=== PATIENT | female | born 1950 | race Caucasian/White ===

== ENCOUNTER → 2017-12-02 | Outpatient (CLI) | payer MEDICARE ==
[~2017-12-02] MED LIST: ALPR0.5T10 PO; AMLO2.5T PO; ASPI-496 PO; ATOR-2 PO; BENA20TA2 PO; CALC-141 PO; CITA20TA5 PO; GARL10002 PO; HYDR25TA6 PO; LACT1CAP20 PO; MAGN100T3 PO; METO25TA35 PO; OMEP20TA62 PO
== END | disposition home or self-care (01) ==
LOC: CFH 07:00
PROVIDERS: ATTEND Physician Assistant
DX: I35.8 Other nonrheumatic aortic valve disorders (principal); I25.10 Atherosclerotic heart disease of native coronary artery without angina pectoris
CPT/HCPCS: 93306

== ENCOUNTER → 2018-07-04 | Outpatient (CLI) | payer MEDICARE ==
[~2018-07-04] MED LIST changes: -BENA20TA2 PO; +BENA20TA4 PO; -CITA20TA5 PO; +CITA20TA6 PO; +GADOBUTROL 7.5 MMOL/7.5 ML PFS ONE
== END | disposition home or self-care (01) ==
LOC: CFH 07:24
PROVIDERS: ATTEND Anesthesiology
DX: S83.241A Other tear of medial meniscus, current injury, right knee, initial encounter (principal); M25.461 Effusion, right knee; M17.11 Unilateral primary osteoarthritis, right knee; X58.XXXA Exposure to other specified factors, initial encounter; Y93.89 Activity, other specified; Y92.89 Other specified places as the place of occurrence of the external cause; Y99.8 Other external cause status
CPT/HCPCS: 73723; A9585

== ENCOUNTER 2018-08-09 14:17 | Emergency (ER) | payer MEDICARE ==
[~2018-08-09] VITALS: Ht 170.2 cm; Wt 70.9 kg
[~2018-08-09 14:17] MED LIST changes: -AMLO2.5T PO; +AMLO2.5T3 PO; -GADOBUTROL 7.5 MMOL/7.5 ML PFS ONE
[2018-08-09 14:57] LABS: BASOPHILS # (AUTO) 0.12 x10^3/uL (0-0.1); BASOPHILS % (AUTO) 1 % (0-1); EOSINOPHILS # (AUTO) 0.19 x10^3/uL (0-0.4); EOSINOPHILS % (AUTO) 2 % (1-7); LYMPHOCYTES # (AUTO) 2.86 x10^3/uL (1-3.4); LYMPHOCYTES % (AUTO) 26 % (22-44); MD NO; MEAN CORPUSCULAR HEMOGLOBIN 32.4 pg (27.0-34.8); MEAN CORPUSCULAR HGB CONC 33.7 g/dL (32.4-35.8); MEAN PLATELET VOLUME 8.8 fL (7.4-10.4); MONOCYTES # (AUTO) 0.64 x10^3/uL (0.2-0.8); MONOCYTES % (AUTO) 6 % (2-9); NEUTROPHILS % (AUTO) 65 % (42-75); PLATELET COUNT 307 x10^3/uL (130-400); RED BLOOD COUNT 4.88 x10^6/uL (3.82-5.3); RED CELL DISTRIBUTION WIDTH 13.6 % (9.6-15.2)
[2018-08-09] MEDS ORDERED: SODIUM CHLORIDE FLUSH 10ML SYR IVF ONE (15:00)
[2018-08-09 15:02] LABS: INTERNATIONAL NORMALIZED RATIO 0.99 (0.93-1.1); PROTHROMBIN TIME 10.3 Seconds (9.6-11.5)
[2018-08-09 15:05] LABS: ALANINE AMINOTRANSFERASE 38 U/L (12-78); ALBUMIN 3.7 g/dL (3.4-5.0); ANION GAP 7 mmol/L (5-15); CALCIUM 9.3 mg/dL (8.5-10.1); CHLORIDE 109 mmol/L (98-107)
[2018-08-09 15:08] LABS: ALKALINE PHOSPHATASE 81 U/L (45-117); TOTAL PROTEIN 7.1 g/dL (6.4-8.2)
[2018-08-09] MEDS ORDERED: OMNIPAQUE 350 MG/ML, 100ML BOTTLE ONE (15:51)
[2018-08-09 17:06] VITALS: BP 134/81
== END 2018-08-09 17:08 | disposition home or self-care (01) ==
LOC: ED 15:18
DX: K57.31 Diverticulosis of large intestine without perforation or abscess with bleeding (principal); E78.00 Pure hypercholesterolemia, unspecified; I25.2 Old myocardial infarction; Z87.891 Personal history of nicotine dependence; I10 Essential (primary) hypertension
CPT/HCPCS: 36415; 74174; 80053; 85025; 85610; 86850; 86900; 99285; Q9967

== ENCOUNTER 2018-10-22 11:25 | Emergency (ER) | payer MEDICARE ==
[~2018-10-22] VITALS: Ht 170.2 cm; Wt 72.0 kg
[2018-10-22] MEDS ORDERED: DIAZEPAM 5 MG TABLET PO ONE (12:00)
[2018-10-22] MEDS ORDERED: METHOCARBAMOL 750 MG TABLET PO ONE (12:00)
[2018-10-22] MEDS ORDERED: METHOCARBAMOL 750 MG TABLET ONE (12:12)
[2018-10-22] MEDS ORDERED: DIAZEPAM 5 MG TABLET ONE (12:13)
[2018-10-22] MEDS ORDERED: TRAZ-136 PO (13:28)
[2018-10-22] MEDS ORDERED: DULO30CA2 PO (13:28)
[2018-10-22] MEDS ORDERED: POTA99TA2 PO (13:28)
[2018-10-22] MEDS ORDERED: HYDR-3241 PO (13:28)
[2018-10-22] MEDS ORDERED: TAPE100T8 PO (13:28)
[2018-10-22] MEDS ORDERED: BENA20TA4 PO (13:28)
[2018-10-22] MEDS ORDERED: CELE200C PO (13:28)
[2018-10-22 13:39] VITALS: BP 126/76
== END 2018-10-22 13:42 | disposition home or self-care (01) ==
LOC: ED 13:36
DX: M54.16 Radiculopathy, lumbar region (principal); M54.42 Lumbago with sciatica, left side; I10 Essential (primary) hypertension; I25.2 Old myocardial infarction; E78.00 Pure hypercholesterolemia, unspecified; I25.10 Atherosclerotic heart disease of native coronary artery without angina pectoris
CPT/HCPCS: 99284; J7512

== ENCOUNTER 2020-06-13 13:28 | Inpatient (IN) | payer MEDICARE ==
[~2020-06-13] VITALS: Ht 170.2 cm; Wt 66.4 kg
[~2020-06-13 13:28] MED LIST changes: -AMLO2.5T3 PO; +AMLO2.5T5 PO; -BENA20TA4 PO; +BENA20TA54 PO; +CELE200C PO; +DULO30CA2 PO; +HYDR-3241 PO; +POTA99TA2 PO; +TAPE100T8 PO; +TRAZ50TA66 PO
--- NOTE | 2020-06-13 13:30 | NUR ---
TASK RN: JOHNSON FRAZIER FROM HOME W/ CO EPIGASTRIC & PERIUMBILICAL ABD PAIN X SATURDAY & N/V X TWO DAYS. +LOW GRADE FEVER, 99.8 YESTERDAY. DENIES URINARY S/S, CHEST PAIN, SOB, BLOOD IN EMESIS OR STOOL, OR CHILLS. UNABLE TO TAKE HOME MEDICTIONS SINCE YESTERDAY SECONDARY TO PAIN/N/V. ZOFRAN 4MG IV GIVEN EN ROUTE WITH EFFECT. PT ARRIVES A&OX4, MM DRY, CONJUNCTIVA PALE. BP/SPO2/ECG MONITORING IN PLACE. HYPOTENSIVE AND TACHYCARDIC. IVF HUNG, OKAY PER ERP VERBAL ORDER. EKG COMPLETED UPON ARRIVAL.
[2020-06-13] MEDS ORDERED: TRAMADOL (13:51)
[2020-06-13] MEDS ORDERED: HYDRALAZINE (13:53)
[2020-06-13] MEDS ORDERED: BENZONATE (13:53)
[2020-06-13] MEDS ORDERED: FAMOTIDINE 20 MG/2 ML ONE (13:57)
[2020-06-13] MEDS ORDERED: ONDANSETRON 2MG/ML, 2ML ONE (13:57)
[2020-06-13 14:07] LABS: BASOPHILS # (AUTO) 0.03 x10^3/uL (0-0.1); BASOPHILS % (AUTO) 0 % (0-1); EOSINOPHILS # (AUTO) 0.03 x10^3/uL (0-0.4); EOSINOPHILS % (AUTO) 0 % (1-7); LYMPHOCYTES # (AUTO) 1.65 x10^3/uL (1-3.4); LYMPHOCYTES % (AUTO) 14 % (22-44); MD NO; MEAN CORPUSCULAR HGB CONC 32.5 g/dL (32.4-35.8); MEAN CORPUSCULAR VOLUME 98.7 fL (80-100); MONOCYTES # (AUTO) 0.75 x10^3/uL (0.2-0.8); MONOCYTES % (AUTO) 6 % (2-9); NEUTROPHILS # (AUTO) 9.53 x10^3/uL (1.8-6.8); NEUTROPHILS % (AUTO) 80 % (42-75); PLATELET COUNT 229 x10^3/uL (130-400); RED BLOOD COUNT 5.14 x10^6/uL (3.82-5.3)
[2020-06-13 14:20] LABS: ALANINE AMINOTRANSFERASE 38 U/L (12-78); ALBUMIN 3.2 g/dL (3.4-5.0); ANION GAP 10 mmol/L (5-15); CALCIUM 9.7 mg/dL (8.5-10.1); CHLORIDE 105 mmol/L (98-107); CREATININE 1.43 mg/dL (0.55-1.02)
[2020-06-13 14:22] LABS: ALKALINE PHOSPHATASE 75 U/L (45-117); BILIRUBIN,TOTAL 1.1 mg/dL (0.2-1.0)
--- NOTE | 2020-06-13 14:27 | NUR ---
SHI'D PATIENT AND GOT A SMALL AMOUNT OF DARK YELLOW URINE OUT, SENT TO LAB LABELED IN HER PRESENCE.
[2020-06-13] MEDS ORDERED: FAMOTIDINE 20 MG/2 ML IV ONE (15:00)
[2020-06-13] MEDS ORDERED: SODIUM CHLORIDE 0.9% 1,000ML IVBOLUS ONE ×2 (15:00→20:30)
[2020-06-13] MEDS ORDERED: ONDANSETRON 2MG/ML, 2ML IVPush ONE (15:00)
[2020-06-13] MEDS ORDERED: SODIUM CHLORIDE FLUSH 10ML SYR IVF ONE (15:00)
[2020-06-13 15:09] LABS: MICROSCOPIC INDICATED
[2020-06-13] MEDS ORDERED: OMNIPAQUE 350 MG/ML, 100ML BOTTLE ONE (15:10)
[2020-06-13] MEDS ORDERED: CEFTRIAXONE PMX 1GM/50ML 50 ML IVPB ONE (15:30)
[2020-06-13] MEDS ORDERED: CEFTRIAXONE PMX 1GM/50ML 50 ML ONE (15:38)
--- NOTE | 2020-06-13 15:42 | NUR ---
2 l oxygen for sat 89%
[2020-06-13] MEDS ORDERED: ACETAMINOPHEN 500 MG TABLET ONE (16:58)
[2020-06-13] MEDS ORDERED: ACETAMINOPHEN 500 MG TABLET PO ONE (17:00)
[2020-06-13] MEDS ORDERED: METOPROLOL 1 MG/ML, 5ML ONE (18:10)
--- NOTE | 2020-06-13 18:17 | NUR ---
patient got up to bathroom, and came back and oxygen sat 87%, placed again on 2 liters let MD know.
[2020-06-13] MEDS ORDERED: METOPROLOL 1 MG/ML, 5ML IVPush ONE (18:30)
--- NOTE | 2020-06-13 18:56 | NUR ---
RECEIVED REPORT FROM CONSTANCE LEE. PT TO IMAGING.
--- NOTE | 2020-06-13 19:27 | NUR ---
WAITING FOR BC TO BE DRAWN TO GIVEN SECOND ABX.
[2020-06-13] MEDS ORDERED: AZITHROMYCIN 500 MG in SODIUM CHLORIDE 0.9% 250 ML IVPB ONE (19:30)
[2020-06-13] MEDS ORDERED: SODIUM CHLORIDE FLUSH 10ML SYR IVF PRN (20:00)
--- NOTE | 2020-06-13 21:03 | NUR ---
REPORT GIVEN TO CONSTANCE MARTINEZ. PT LAYING IN BED, SLEEPING, RESPIRATIONS EVEN AND UNLABORED.
--- NOTE | 2020-06-13 21:09 | NUR ---
EKG ON CHART, TIME STAMP FOR 2494
[2020-06-13] MEDS ORDERED: POTASSIUM CHLORIDE 20 MEQ TAB.ER.PRT PO ONE (21:30)
[2020-06-13] MEDS ORDERED: morphine SULFATE 10 MG/ML, 1ML IVPush PRN (21:30)
[2020-06-13 22:07] VITALS: BP 91/51
[2020-06-13 22:10] LABS: TROPONIN I < 0.015 ng/mL (0.000-0.045)
[2020-06-13] MEDS: TRAZODONE 50MG TABLET PO SCH (22:12)
[2020-06-13] MEDS: METOPROLOL TARTRATE 25 MG TAB PO SCH (22:12)
[2020-06-13] MEDS: HEPARIN 5,000 UNITS/ML, 1ML SQ SCH (22:13)
[2020-06-13] MEDS ORDERED: LACTATED RINGERS 1,000 ML IV SCH (22:30)
[2020-06-14 01:01] VITALS: BP 92/55
[2020-06-14 04:45] LABS: BASOPHILS # (AUTO) 0.04 x10^3/uL (0-0.1); BASOPHILS % (AUTO) 0 % (0-1); EOSINOPHILS % (AUTO) 0 % (1-7); LYMPHOCYTES # (AUTO) 1.87 x10^3/uL (1-3.4); LYMPHOCYTES % (AUTO) 15 % (22-44); MD NO; MEAN CORPUSCULAR HEMOGLOBIN 32.5 pg (27.0-34.8); MEAN CORPUSCULAR HGB CONC 33.7 g/dL (32.4-35.8); MEAN CORPUSCULAR VOLUME 96.5 fL (80-100); MONOCYTES # (AUTO) 0.83 x10^3/uL (0.2-0.8); MONOCYTES % (AUTO) 7 % (2-9); NEUTROPHILS # (AUTO) 9.43 x10^3/uL (1.8-6.8); NEUTROPHILS % (AUTO) 77 % (42-75); PLATELET COUNT 178 x10^3/uL (130-400); RED BLOOD COUNT 4.42 x10^6/uL (3.82-5.3); RED CELL DISTRIBUTION WIDTH 13.9 % (9.6-15.2)
[2020-06-14 04:49] LABS: ANION GAP 8 mmol/L (5-15); CALCIUM 8.1 mg/dL (8.5-10.1); CHLORIDE 110 mmol/L (98-107); CREATININE 0.84 mg/dL (0.55-1.02)
[2020-06-14] MEDS: HEPARIN 5,000 UNITS/ML, 1ML SQ SCH ×3 (05:20→20:46)
[2020-06-14 08:34] VITALS: BP 103/66
[2020-06-14] MEDS: DULOXETINE 30 MG CAPSULE.DR PO SCH (08:42)
[2020-06-14] MEDS: ASPIRIN 81 MG TABLET EC PO SCH (08:42)
[2020-06-14] MEDS: METOPROLOL TARTRATE 25 MG TAB PO SCH ×2 (08:43→20:47)
[2020-06-14] MEDS: CITALOPRAM 20 MG TABLET PO SCH (08:43)
[2020-06-14] MEDS: OMEPRAZOLE 20 MG CAPSULE.DR PO SCH (08:43)
[2020-06-14] MEDS: AMLODIPINE 5 MG TABLET PO SCH (08:43)
[2020-06-14 16:08] VITALS: BP 113/67
[2020-06-14 18:45] VITALS: BP 95/58
[2020-06-14] MEDS: TRAZODONE 50MG TABLET PO SCH (20:46)
[2020-06-14] MEDS: CEFTRIAXONE PMX 1GM/50ML 50 ML IV SCH (20:46)
[2020-06-14] MEDS: ATORVASTATIN 80 MG TABLET PO SCH (20:46)
[2020-06-14] MEDS: AZITHROMYCIN 500 MG in SODIUM CHLORIDE 0.9% 250 ML IV SCH (22:10)
[2020-06-15 00:19] VITALS: BP 111/68
[2020-06-15] MEDS: HEPARIN 5,000 UNITS/ML, 1ML SQ SCH ×3 (05:18→21:08)
[2020-06-15 05:40] LABS: BASOPHILS # (AUTO) 0.01 x10^3/uL (0-0.1); BASOPHILS % (AUTO) 0 % (0-1); EOSINOPHILS # (AUTO) 0.07 x10^3/uL (0-0.4); EOSINOPHILS % (AUTO) 1 % (1-7); LYMPHOCYTES # (AUTO) 2.04 x10^3/uL (1-3.4); LYMPHOCYTES % (AUTO) 25 % (22-44); MD NO; MEAN CORPUSCULAR HEMOGLOBIN 32.3 pg (27.0-34.8); MEAN CORPUSCULAR HGB CONC 33.2 g/dL (32.4-35.8); MEAN CORPUSCULAR VOLUME 97.5 fL (80-100); MEAN PLATELET VOLUME 8.6 fL (7.4-10.4); MONOCYTES # (AUTO) 0.73 x10^3/uL (0.2-0.8); MONOCYTES % (AUTO) 9 % (2-9); NEUTROPHILS # (AUTO) 5.37 x10^3/uL (1.8-6.8); NEUTROPHILS % (AUTO) 65 % (42-75); PLATELET COUNT 177 x10^3/uL (130-400); RED BLOOD COUNT 4.22 x10^6/uL (3.82-5.3); RED CELL DISTRIBUTION WIDTH 14.1 % (9.6-15.2)
[2020-06-15 06:03] LABS: CHLORIDE 108 mmol/L (98-107)
[2020-06-15 06:07] LABS: ANION GAP 6 mmol/L (5-15); CREATININE 0.56 mg/dL (0.55-1.02)
[2020-06-15 07:02] VITALS: BP 137/76
[2020-06-15] MEDS: METOPROLOL TARTRATE 25 MG TAB PO SCH ×2 (08:26→21:03)
[2020-06-15] MEDS: OMEPRAZOLE 20 MG CAPSULE.DR PO SCH (08:26)
[2020-06-15] MEDS: AMLODIPINE 5 MG TABLET PO SCH (08:26)
[2020-06-15] MEDS: ASPIRIN 81 MG TABLET EC PO SCH (08:27)
[2020-06-15] MEDS: DULOXETINE 30 MG CAPSULE.DR PO SCH (08:27)
[2020-06-15] MEDS: CITALOPRAM 20 MG TABLET PO SCH (08:27)
[2020-06-15 12:01] VITALS: BP 124/65
[2020-06-15] MEDS ORDERED: POTASSIUM CHLORIDE 20 MEQ TAB.ER.PRT PO ONE (13:00)
[2020-06-15] MEDS: ONDANSETRON 2MG/ML, 2ML IVPush PRN (17:04)
[2020-06-15 18:33] VITALS: BP 164/84
[2020-06-15] MEDS: ATORVASTATIN 80 MG TABLET PO SCH (21:03)
[2020-06-15] MEDS: TRAZODONE 50MG TABLET PO SCH (21:03)
[2020-06-15] MEDS: CEFTRIAXONE PMX 1GM/50ML 50 ML IV SCH (21:03)
[2020-06-15] MEDS: AZITHROMYCIN 500 MG in SODIUM CHLORIDE 0.9% 250 ML IV SCH (22:07)
[2020-06-16] MEDS: ONDANSETRON 2MG/ML, 2ML IVPush PRN ×4 (00:29→21:39)
[2020-06-16 00:32] VITALS: BP 133/72
[2020-06-16] MEDS: HEPARIN 5,000 UNITS/ML, 1ML SQ SCH ×3 (05:14→20:28)
[2020-06-16 05:52] LABS: BASOPHILS # (AUTO) 0.03 x10^3/uL (0-0.1); BASOPHILS % (AUTO) 0 % (0-1); EOSINOPHILS # (AUTO) 0.02 x10^3/uL (0-0.4); EOSINOPHILS % (AUTO) 0 % (1-7); LYMPHOCYTES # (AUTO) 1.84 x10^3/uL (1-3.4); LYMPHOCYTES % (AUTO) 21 % (22-44); MD NO; MEAN CORPUSCULAR HEMOGLOBIN 31.5 pg (27.0-34.8); MEAN CORPUSCULAR HGB CONC 32.7 g/dL (32.4-35.8); MEAN CORPUSCULAR VOLUME 96.2 fL (80-100); MEAN PLATELET VOLUME 8.9 fL (7.4-10.4); MONOCYTES # (AUTO) 0.82 x10^3/uL (0.2-0.8); MONOCYTES % (AUTO) 9 % (2-9); NEUTROPHILS # (AUTO) 5.99 x10^3/uL (1.8-6.8); NEUTROPHILS % (AUTO) 69 % (42-75); PLATELET COUNT 196 x10^3/uL (130-400); RED BLOOD COUNT 4.34 x10^6/uL (3.82-5.3); RED CELL DISTRIBUTION WIDTH 13.5 % (9.6-15.2)
[2020-06-16 05:57] LABS: CREATININE 0.56 mg/dL (0.55-1.02)
[2020-06-16 08:01] VITALS: BP 105/64
[2020-06-16] MEDS: ACETAMINOPHEN 325 MG TABLET PO PRN ×2 (08:06→20:27)
[2020-06-16] MEDS: DULOXETINE 30 MG CAPSULE.DR PO SCH (08:07)
[2020-06-16] MEDS: METOPROLOL TARTRATE 25 MG TAB PO SCH ×2 (08:09→20:28)
[2020-06-16] MEDS: AMLODIPINE 5 MG TABLET PO SCH (08:09)
[2020-06-16] MEDS: OMEPRAZOLE 20 MG CAPSULE.DR PO SCH (08:09)
[2020-06-16] MEDS: CITALOPRAM 20 MG TABLET PO SCH (08:09)
[2020-06-16] MEDS: ASPIRIN 81 MG TABLET EC PO SCH (09:00)
[2020-06-16 09:05] LABS: ANION GAP 6 mmol/L (5-15); CHLORIDE 104 mmol/L (98-107)
[2020-06-16 12:10] VITALS: BP 101/58
[2020-06-16] MEDS: LEVOFLOXACIN/PMX 750MG/150ML 150 ML IV SCH (12:49)
[2020-06-16 18:50] VITALS: BP 122/43
[2020-06-16 20:20] VITALS: BP 105/70
[2020-06-16] MEDS: CEFTRIAXONE PMX 1GM/50ML 50 ML IV SCH (20:27)
[2020-06-16] MEDS: ATORVASTATIN 80 MG TABLET PO SCH (20:28)
[2020-06-16] MEDS: TRAZODONE 50MG TABLET PO SCH (20:28)
[2020-06-16 20:39] LABS: CLOSTRIDIUM DIFFICILE ANTIGEN POSITIVE; CLOSTRIDIUM DIFFICILE TOXIN NEGATIVE (Negative)
[2020-06-17 00:28] VITALS: BP 96/41
[2020-06-17 00:38] VITALS: BP 89/43
[2020-06-17] MEDS: ACETAMINOPHEN 325 MG TABLET PO PRN ×2 (00:43→20:43)
[2020-06-17] MEDS ORDERED: SODIUM CHLORIDE 0.9%, 500ML IVBOLUS ONE ×2 (01:00→01:30)
[2020-06-17] MEDS: HEPARIN 5,000 UNITS/ML, 1ML SQ SCH ×3 (06:04→20:43)
[2020-06-17 06:12] LABS: BASOPHILS # (AUTO) 0.03 x10^3/uL (0-0.1); BASOPHILS % (AUTO) 0 % (0-1); EOSINOPHILS # (AUTO) 0.01 x10^3/uL (0-0.4); EOSINOPHILS % (AUTO) 0 % (1-7); LYMPHOCYTES # (AUTO) 1.65 x10^3/uL (1-3.4); LYMPHOCYTES % (AUTO) 18 % (22-44); MD NO; MEAN CORPUSCULAR HEMOGLOBIN 31.7 pg (27.0-34.8); MEAN CORPUSCULAR HGB CONC 32.6 g/dL (32.4-35.8); MEAN CORPUSCULAR VOLUME 97.1 fL (80-100); MEAN PLATELET VOLUME 9.4 fL (7.4-10.4); MONOCYTES # (AUTO) 0.88 x10^3/uL (0.2-0.8); MONOCYTES % (AUTO) 9 % (2-9); NEUTROPHILS # (AUTO) 6.84 x10^3/uL (1.8-6.8); NEUTROPHILS % (AUTO) 73 % (42-75); PLATELET COUNT 194 x10^3/uL (130-400); RED BLOOD COUNT 4.46 x10^6/uL (3.82-5.3); RED CELL DISTRIBUTION WIDTH 13.7 % (9.6-15.2)
[2020-06-17 06:20] LABS: ANION GAP 7 mmol/L (5-15); CHLORIDE 105 mmol/L (98-107)
[2020-06-17 07:19] VITALS: BP 159/72
[2020-06-17] MEDS: ONDANSETRON 2MG/ML, 2ML IVPush PRN (09:15)
[2020-06-17] MEDS ORDERED: SODIUM CHLORIDE 0.9% 1,000ML IVBOLUS ONE (12:00)
[2020-06-17] MEDS: PROMETHAZINE 25 MG/ML, 1ML IM PRN ×2 (12:04→20:42)
[2020-06-17 12:27] VITALS: BP 161/84
[2020-06-17] MEDS: DULOXETINE 30 MG CAPSULE.DR PO SCH (13:30)
[2020-06-17] MEDS: ASPIRIN 81 MG TABLET EC PO SCH (13:30)
[2020-06-17] MEDS: LEVOFLOXACIN/PMX 750MG/150ML 150 ML IV SCH (13:30)
[2020-06-17] MEDS: CITALOPRAM 20 MG TABLET PO SCH (13:31)
[2020-06-17] MEDS: METOPROLOL TARTRATE 25 MG TAB PO SCH ×2 (13:31→20:43)
[2020-06-17] MEDS: AMLODIPINE 5 MG TABLET PO SCH (13:31)
[2020-06-17] MEDS: OMEPRAZOLE 20 MG CAPSULE.DR PO SCH (13:32)
[2020-06-17 19:22] VITALS: BP 118/65
[2020-06-17] MEDS: CEFTRIAXONE PMX 1GM/50ML 50 ML IV SCH (20:42)
[2020-06-17] MEDS: ATORVASTATIN 80 MG TABLET PO SCH (20:43)
[2020-06-17] MEDS: TRAZODONE 50MG TABLET PO SCH (20:43)
[2020-06-17 22:57] LABS: MICROSCOPIC INDICATED
[2020-06-18 03:43] VITALS: BP 101/53
[2020-06-18] MEDS: HEPARIN 5,000 UNITS/ML, 1ML SQ SCH ×3 (05:35→21:30)
[2020-06-18] MEDS: PROMETHAZINE 25 MG/ML, 1ML IM PRN ×3 (05:40→22:11)
[2020-06-18 05:58] LABS: CHLORIDE 102 mmol/L (98-107)
[2020-06-18 06:09] LABS: ALANINE AMINOTRANSFERASE 29 U/L (12-78); ALBUMIN 2.3 g/dL (3.4-5.0); ALKALINE PHOSPHATASE 49 U/L (45-117); ANION GAP 9 mmol/L (5-15); BILIRUBIN,TOTAL 0.7 mg/dL (0.2-1.0); CALCIUM 7.8 mg/dL (8.5-10.1); CREATININE 0.63 mg/dL (0.55-1.02); TOTAL PROTEIN 6.3 g/dL (6.4-8.2)
[2020-06-18 07:24] VITALS: BP 117/65
[2020-06-18] MEDS ORDERED: POTASSIUM CHLORIDE 20 MEQ TAB.ER.PRT PO ONE (08:30)
[2020-06-18] MEDS: ASCORBATE SODIUM 3,000 MG in SODIUM CHLORIDE 0.9% 250 ML IVPB SCH ×3 (10:00→21:30)
[2020-06-18] MEDS ORDERED: PROCHLORPERAZINE 5 MG/ML, 2ML IM PRN (11:30)
[2020-06-18 12:16] VITALS: BP 153/82
[2020-06-18] MEDS: FLUTICASONE/VILANTEROL 100-25MCG/INH INH SCH (12:38)
[2020-06-18] MEDS: OMEPRAZOLE 20 MG CAPSULE.DR PO SCH (12:39)
[2020-06-18] MEDS: LEVOFLOXACIN/PMX 750MG/150ML 150 ML IV SCH (12:39)
[2020-06-18] MEDS: CHOLECALCIFEROL 5,000u TAB PO SCH (12:40)
[2020-06-18] MEDS: ACETAMINOPHEN 325 MG TABLET PO PRN ×2 (12:40→21:47)
[2020-06-18] MEDS: DULOXETINE 30 MG CAPSULE.DR PO SCH (12:41)
[2020-06-18] MEDS: ASPIRIN 81 MG TABLET EC PO SCH (12:41)
[2020-06-18] MEDS: MULTIVITS,STRESS FORMULA 1 TABLET PO SCH (12:41)
[2020-06-18] MEDS: THIAMINE 100MG TABLET PO SCH ×2 (12:41→21:00)
[2020-06-18] MEDS: MAGNESIUM OXIDE 400 MG TABLET PO SCH (12:42)
[2020-06-18] MEDS: METOPROLOL TARTRATE 25 MG TAB PO SCH ×2 (12:42→21:47)
[2020-06-18] MEDS: CITALOPRAM 20 MG TABLET PO SCH (12:42)
[2020-06-18] MEDS: ZINC SULFATE 220 MG CAPSULE PO SCH (12:42)
[2020-06-18] MEDS: AMLODIPINE 5 MG TABLET PO SCH (13:04)
[2020-06-18 18:45] VITALS: BP 123/68
[2020-06-18] MEDS: CEFTRIAXONE PMX 1GM/50ML 50 ML IV SCH (20:48)
[2020-06-18] MEDS: ATORVASTATIN 80 MG TABLET PO SCH (21:00)
[2020-06-18] MEDS: TRAZODONE 50MG TABLET PO SCH (21:00)
[2020-06-19 00:32] VITALS: BP 117/69
[2020-06-19] MEDS: ASCORBATE SODIUM 3,000 MG in SODIUM CHLORIDE 0.9% 250 ML IVPB SCH ×3 (04:08→21:35)
[2020-06-19 05:19] LABS: BASOPHILS # (AUTO) 0.01 x10^3/uL (0-0.1); BASOPHILS % (AUTO) 0 % (0-1); EOSINOPHILS % (AUTO) 0 % (1-7); LYMPHOCYTES # (AUTO) 1.55 x10^3/uL (1-3.4); LYMPHOCYTES % (AUTO) 10 % (22-44); MD NO; MEAN CORPUSCULAR HEMOGLOBIN 32.4 pg (27.0-34.8); MEAN CORPUSCULAR HGB CONC 33.9 g/dL (32.4-35.8); MEAN CORPUSCULAR VOLUME 95.4 fL (80-100); MONOCYTES # (AUTO) 0.46 x10^3/uL (0.2-0.8); MONOCYTES % (AUTO) 3 % (2-9); NEUTROPHILS # (AUTO) 13.37 x10^3/uL (1.8-6.8); NEUTROPHILS % (AUTO) 87 % (42-75); PLATELET COUNT 262 x10^3/uL (130-400); RED BLOOD COUNT 4.11 x10^6/uL (3.82-5.3); RED CELL DISTRIBUTION WIDTH 13.8 % (9.6-15.2)
[2020-06-19 05:21] LABS: ANION GAP 10 mmol/L (5-15); CALCIUM 7.9 mg/dL (8.5-10.1); CHLORIDE 102 mmol/L (98-107); CREATININE 0.62 mg/dL (0.55-1.02)
[2020-06-19 05:22] LABS: ALANINE AMINOTRANSFERASE 39 U/L (12-78); ALBUMIN 2.2 g/dL (3.4-5.0)
[2020-06-19 05:24] LABS: ALKALINE PHOSPHATASE 54 U/L (45-117); BILIRUBIN,TOTAL 0.7 mg/dL (0.2-1.0); TOTAL PROTEIN 6.2 g/dL (6.4-8.2)
[2020-06-19] MEDS: PROMETHAZINE 25 MG/ML, 1ML IM PRN (05:36)
[2020-06-19] MEDS: HEPARIN 5,000 UNITS/ML, 1ML SQ SCH ×3 (05:36→21:17)
[2020-06-19] MEDS: GUAIFENESIN/DM 200-20MG, 10ML UDC PO PRN ×2 (05:37→21:15)
[2020-06-19 07:21] VITALS: BP 143/71
[2020-06-19] MEDS: FLUTICASONE/VILANTEROL 100-25MCG/INH INH SCH (08:22)
[2020-06-19] MEDS: ZINC SULFATE 220 MG CAPSULE PO SCH (08:23)
[2020-06-19] MEDS: MAGNESIUM OXIDE 400 MG TABLET PO SCH (08:23)
[2020-06-19] MEDS: THIAMINE 100MG TABLET PO SCH ×2 (08:23→21:16)
[2020-06-19] MEDS: CHOLECALCIFEROL 5,000u TAB PO SCH (08:23)
[2020-06-19] MEDS: ASPIRIN 81 MG TABLET EC PO SCH (08:23)
[2020-06-19] MEDS: CITALOPRAM 20 MG TABLET PO SCH (08:23)
[2020-06-19] MEDS: MULTIVITS,STRESS FORMULA 1 TABLET PO SCH (08:23)
[2020-06-19] MEDS: METOPROLOL TARTRATE 25 MG TAB PO SCH ×2 (08:23→21:16)
[2020-06-19] MEDS: AMLODIPINE 5 MG TABLET PO SCH (08:24)
[2020-06-19] MEDS: DULOXETINE 30 MG CAPSULE.DR PO SCH (08:24)
[2020-06-19] MEDS: OMEPRAZOLE 20 MG CAPSULE.DR PO SCH (08:24)
[2020-06-19] MEDS: ACETAMINOPHEN 325 MG TABLET PO PRN (12:04)
[2020-06-19 12:27] VITALS: BP 105/67
[2020-06-19] MEDS: VANCOMYCIN 50 MG/ML ORAL SUSP PO SCH ×2 (13:36→21:15)
[2020-06-19] MEDS: LEVOFLOXACIN/PMX 750MG/150ML 150 ML IV SCH (13:36)
[2020-06-19] MEDS: MAGNESIUM SULFATE PMX 2GM/50ML 50 ML IV SCH (14:58)
[2020-06-19] MEDS: POTASSIUM CHLORIDE 20 MEQ in SODIUM CHLORIDE 0.9% 250 ML IV SCH (17:00)
[2020-06-19 18:40] VITALS: BP 105/50
[2020-06-19] MEDS ORDERED: POTASSIUM CHLORIDE 20 MEQ in SODIUM CHLORIDE 0.9% 250 ML IV SCH (21:00)
[2020-06-19] MEDS: CEFTRIAXONE PMX 1GM/50ML 50 ML IV SCH (21:15)
[2020-06-19] MEDS: ATORVASTATIN 80 MG TABLET PO SCH (21:16)
[2020-06-19] MEDS: TRAZODONE 50MG TABLET PO SCH (21:16)
[2020-06-19] MEDS: LORazepam 2 MG/ML, 1ML IVPush PRN (21:27)
[2020-06-20 00:41] VITALS: BP 108/56
[2020-06-20] MEDS: VANCOMYCIN 50 MG/ML ORAL SUSP PO SCH ×4 (01:30→19:42)
[2020-06-20] MEDS: ASCORBATE SODIUM 3,000 MG in SODIUM CHLORIDE 0.9% 250 ML IVPB SCH ×3 (03:51→18:29)
[2020-06-20 05:07] LABS: MEAN CORPUSCULAR HEMOGLOBIN 31.4 pg (27.0-34.8); MEAN CORPUSCULAR HGB CONC 32.7 g/dL (32.4-35.8); MEAN PLATELET VOLUME 8.7 fL (7.4-10.4); PLATELET COUNT 272 x10^3/uL (130-400); RED BLOOD COUNT 3.36 x10^6/uL (3.82-5.3); RED CELL DISTRIBUTION WIDTH 13.5 % (9.6-15.2)
[2020-06-20 05:15] LABS: ALBUMIN 1.7 g/dL (3.4-5.0); ANION GAP 8 mmol/L (5-15); CALCIUM 7.2 mg/dL (8.5-10.1); CHLORIDE 103 mmol/L (98-107); CREATININE 0.64 mg/dL (0.55-1.02)
[2020-06-20] MEDS: HEPARIN 5,000 UNITS/ML, 1ML SQ SCH ×3 (05:36→21:29)
[2020-06-20 05:51] LABS: BASOPHILS % (AUTO) 0 % (0-1); EOSINOPHILS # (AUTO) 0.01 x10^3/uL (0-0.4); EOSINOPHILS % (AUTO) 0 % (1-7); LYMPHOCYTES # (AUTO) 0.84 x10^3/uL (1-3.4); LYMPHOCYTES % (AUTO) 5 % (22-44); MD SCAN; MONOCYTES # (AUTO) 0.65 x10^3/uL (0.2-0.8); MONOCYTES % (AUTO) 4 % (2-9); NEUTROPHILS # (AUTO) 15.31 x10^3/uL (1.8-6.8); NEUTROPHILS % (AUTO) 91 % (42-75)
[2020-06-20] MEDS ORDERED: SUCCINYLCHOLINE 20 MG/ML, 10ML ONE (08:00)
[2020-06-20] MEDS ORDERED: MIDAZOLAM 1 MG/ML, 5ML ONE (08:00)
[2020-06-20] MEDS ORDERED: PROPOFOL 100 ML IV ONE (08:00)
[2020-06-20] MEDS ORDERED: ETOMIDATE 20 MG/10 ML ONE (08:00)
[2020-06-20] MEDS: FLUTICASONE/VILANTEROL 100-25MCG/INH INH SCH (08:50)
[2020-06-20] MEDS: POTASSIUM CHLORIDE 20 MEQ in SODIUM CHLORIDE 0.9% 250 ML IV SCH ×2 (08:50→21:00)
[2020-06-20] MEDS: METOPROLOL TARTRATE 25 MG TAB PO SCH ×2 (08:51→21:00)
[2020-06-20] MEDS: MAGNESIUM OXIDE 400 MG TABLET PO SCH (08:51)
[2020-06-20] MEDS: CITALOPRAM 20 MG TABLET PO SCH (08:51)
[2020-06-20] MEDS: THIAMINE 100MG TABLET PO SCH ×2 (08:51→21:29)
[2020-06-20] MEDS: CHOLECALCIFEROL 5,000u TAB PO SCH (08:51)
[2020-06-20] MEDS: DULOXETINE 30 MG CAPSULE.DR PO SCH (08:51)
[2020-06-20] MEDS: OMEPRAZOLE 20 MG CAPSULE.DR PO SCH (08:51)
[2020-06-20] MEDS: AMLODIPINE 5 MG TABLET PO SCH (08:51)
[2020-06-20] MEDS: ZINC SULFATE 220 MG CAPSULE PO SCH (08:51)
[2020-06-20] MEDS: ASPIRIN 81 MG TABLET EC PO SCH (08:51)
[2020-06-20] MEDS ORDERED: MAGNESIUM SULFATE PMX 2GM/50ML 50 ML IV SCH (09:00)
[2020-06-20] MEDS: LORazepam 2 MG/ML, 1ML IVPush PRN (09:07)
[2020-06-20] MEDS ORDERED: methylPREDNISolone SOD SUCC 40 MG/ML IV ONE (11:00)
[2020-06-20 11:26] VITALS: BP 102/64
[2020-06-20] MEDS: MULTIVITS,STRESS FORMULA 1 TABLET PO SCH (11:27)
[2020-06-20] MEDS ORDERED: NOREPINEPHRINE 8 MG in SODIUM CHLORIDE 0.9% 242 ML IV PRN (13:44)
[2020-06-20] MEDS ORDERED: BISACODYL 10 MG SUPP PR PRN (14:00)
[2020-06-20] MEDS ORDERED: SENNA/DOCUSATE TABLET NG PRN (14:00)
[2020-06-20] MEDS ORDERED: FENTANYL PF 100 MCG/2ML IVPush PRN (14:00)
[2020-06-20] MEDS ORDERED: SENNA 176 MG/5 ML ORAL SOL NG PRN (14:00)
[2020-06-20] MEDS ORDERED: LEVOFLOXACIN 750 MG TABLET PO SCH (14:00)
[2020-06-20] MEDS ORDERED: LIDOCAINE-MPF 1%, 2ML ENDO PRN (14:00)
[2020-06-20] MEDS ORDERED: DEXTROSE 50%, 50ML SYRINGE IVPush PRN (14:00)
[2020-06-20] MEDS ORDERED: DEXTROSE 4 GM TAB.CHEW PO PRN (14:00)
[2020-06-20] MEDS ORDERED: GLUCAGON 1 MG IM PRN (14:00)
[2020-06-20] MEDS ORDERED: PHARMACY MAY ADJ FOR RENAL FX MC SCH (14:00)
[2020-06-20] MEDS: ALBUTEROL SULFATE 2.5 MG/3 ML INLINE SCH ×3 (14:00→22:00)
[2020-06-20] MEDS ORDERED: LACTULOSE 20 GM/30 ML UDC NG PRN (14:00)
[2020-06-20] MEDS: PROPOFOL 100 ML IV PRN (15:47)
[2020-06-20] MEDS ORDERED: SUCCINYLCHOLINE 20 MG/ML, 10ML IVPush ONE (16:00)
[2020-06-20] MEDS ORDERED: ETOMIDATE 20 MG/10 ML IVPush ONE (16:00)
[2020-06-20] MEDS ORDERED: MIDAZOLAM 1 MG/ML, 2ML IVPush ONE (16:00)
[2020-06-20] MEDS: MAGNESIUM SULFATE PMX 2GM/50ML 50 ML IV SCH (16:05)
[2020-06-20] MEDS: POTASSIUM PHOSPHATE 44 MEQ in SODIUM CHLORIDE 0.9% 500 ML IV SCH (17:06)
[2020-06-20] MEDS ORDERED: SODIUM CHLORIDE 0.9% 1,000ML IVBOLUS ONE ×2 (18:00→18:35)
[2020-06-20] MEDS ORDERED: REMDESIVIR 200 MG in SODIUM CHLORIDE 0.9% 250 ML IVPB ONE (18:00)
[2020-06-20] MEDS: methylPREDNISolone SOD SUCC 125 MG/2 ML IVPush SCH (18:25)
[2020-06-20] MEDS: TRAZODONE 50MG TABLET PO SCH (21:00)
[2020-06-20] MEDS: CEFTRIAXONE PMX 1GM/50ML 50 ML IV SCH (21:28)
[2020-06-20] MEDS: SODIUM CHLORIDE FLUSH 10ML SYR IVF SCH (21:28)
[2020-06-20] MEDS: ATORVASTATIN 80 MG TABLET PO SCH (21:29)
[2020-06-21] MEDS: methylPREDNISolone SOD SUCC 125 MG/2 ML IVPush SCH ×4 (01:10→23:10)
[2020-06-21] MEDS: VANCOMYCIN 50 MG/ML ORAL SUSP PO SCH ×4 (01:10→19:51)
[2020-06-21] MEDS: ASCORBATE SODIUM 3,000 MG in SODIUM CHLORIDE 0.9% 250 ML IVPB SCH ×2 (01:10→07:58)
[2020-06-21] MEDS: ALBUTEROL SULFATE 2.5 MG/3 ML INLINE SCH ×5 (03:20→19:45)
[2020-06-21 05:00] VITALS: BP 104/43
[2020-06-21] MEDS: HEPARIN 5,000 UNITS/ML, 1ML SQ SCH ×3 (05:09→21:15)
[2020-06-21 05:45] LABS: MEAN CORPUSCULAR HEMOGLOBIN 31.9 pg (27.0-34.8); MEAN CORPUSCULAR VOLUME 96.6 fL (80-100); MEAN PLATELET VOLUME 8.3 fL (7.4-10.4); PLATELET COUNT 302 x10^3/uL (130-400); RED BLOOD COUNT 2.78 x10^6/uL (3.82-5.3); RED CELL DISTRIBUTION WIDTH 14.2 % (9.6-15.2)
[2020-06-21 05:53] LABS: CALCIUM 6.2 mg/dL (8.5-10.1); CHLORIDE 113 mmol/L (98-107)
[2020-06-21 05:57] LABS: ALBUMIN 1.4 g/dL (3.4-5.0); ANION GAP 11 mmol/L (5-15); CREATININE 0.64 mg/dL (0.55-1.02)
[2020-06-21] MEDS: PROPOFOL 100 ML IV PRN ×3 (05:57→23:11)
[2020-06-21 06:12] LABS: BASOPHILS # (AUTO) 0.01 x10^3/uL (0-0.1); BASOPHILS % (AUTO) 0 % (0-1); EOSINOPHILS # (AUTO) 0.16 x10^3/uL (0-0.4); EOSINOPHILS % (AUTO) 1 % (1-7); LYMPHOCYTES # (AUTO) 1.09 x10^3/uL (1-3.4); LYMPHOCYTES % (AUTO) 6 % (22-44); MD SCAN; MONOCYTES # (AUTO) 0.43 x10^3/uL (0.2-0.8); MONOCYTES % (AUTO) 2 % (2-9); NEUTROPHILS # (AUTO) 16.43 x10^3/uL (1.8-6.8); NEUTROPHILS % (AUTO) 91 % (42-75)
[2020-06-21] MEDS: FLUTICASONE/VILANTEROL 100-25MCG/INH INH SCH (07:59)
[2020-06-21] MEDS: DULOXETINE 30 MG CAPSULE.DR PO SCH (09:00)
[2020-06-21] MEDS: OMEPRAZOLE 20 MG CAPSULE.DR PO SCH (09:00)
[2020-06-21] MEDS: ASPIRIN 81 MG TABLET EC PO SCH (10:34)
[2020-06-21] MEDS: POTASSIUM PHOSPHATE 44 MEQ in SODIUM CHLORIDE 0.9% 500 ML IV SCH (10:34)
[2020-06-21] MEDS: CITALOPRAM 20 MG TABLET PO SCH (10:34)
[2020-06-21] MEDS: THIAMINE 100MG TABLET PO SCH ×2 (10:34→21:17)
[2020-06-21] MEDS: MULTIVITS,STRESS FORMULA 1 TABLET PO SCH (10:34)
[2020-06-21] MEDS: ZINC SULFATE 220 MG CAPSULE PO SCH (10:34)
[2020-06-21] MEDS: CHOLECALCIFEROL 5,000u TAB PO SCH (10:34)
[2020-06-21] MEDS: SODIUM CHLORIDE FLUSH 10ML SYR IVF SCH ×2 (10:35→21:18)
[2020-06-21] MEDS: PANTOPRAZOLE 40 MG IV IVPush SCH (14:23)
[2020-06-21] MEDS: ASCORBIC ACID 500 MG TABLET NG SCH ×2 (15:55→21:17)
[2020-06-21] MEDS: REMDESIVIR 100 MG in SODIUM CHLORIDE 0.9% 250 ML IVPB SCH (19:51)
[2020-06-21] MEDS: FENTANYL PF 1,000 MCG in SODIUM CHLORIDE 0.9% 80 ML IV PRN (21:10)
[2020-06-21] MEDS: CEFTRIAXONE PMX 1GM/50ML 50 ML IV SCH (21:17)
[2020-06-21] MEDS: TRAZODONE 50MG TABLET PO SCH (21:17)
[2020-06-21] MEDS: ATORVASTATIN 80 MG TABLET PO SCH (21:17)
[2020-06-22] MEDS: VANCOMYCIN 50 MG/ML ORAL SUSP PO SCH ×4 (01:05→20:53)
[2020-06-22] MEDS: PANTOPRAZOLE 40 MG IV IVPush SCH ×2 (01:06→13:43)
[2020-06-22] MEDS: ALBUTEROL SULFATE 2.5 MG/3 ML INLINE SCH ×7 (03:04→22:00)
[2020-06-22] MEDS: PROPOFOL 100 ML IV PRN ×5 (03:39→20:54)
[2020-06-22 04:13] LABS: MEAN CORPUSCULAR HEMOGLOBIN 32.5 pg (27.0-34.8); MEAN CORPUSCULAR HGB CONC 33.8 g/dL (32.4-35.8); MEAN CORPUSCULAR VOLUME 96.1 fL (80-100); MEAN PLATELET VOLUME 9.2 fL (7.4-10.4); PLATELET COUNT 372 x10^3/uL (130-400); RED BLOOD COUNT 2.64 x10^6/uL (3.82-5.3); RED CELL DISTRIBUTION WIDTH 14.2 % (9.6-15.2)
[2020-06-22 04:20] LABS: ALANINE AMINOTRANSFERASE 38 U/L (12-78); ALBUMIN 1.5 g/dL (3.4-5.0); ANION GAP 10 mmol/L (5-15); CALCIUM 6.5 mg/dL (8.5-10.1); CHLORIDE 114 mmol/L (98-107); CREATININE 0.38 mg/dL (0.55-1.02)
[2020-06-22 04:26] LABS: ALKALINE PHOSPHATASE 44 U/L (45-117); BILIRUBIN,TOTAL 0.5 mg/dL (0.2-1.0); TOTAL PROTEIN 5.1 g/dL (6.4-8.2)
[2020-06-22 04:36] LABS: BASOPHILS # (AUTO) 0.04 x10^3/uL (0-0.1); BASOPHILS % (AUTO) 0 % (0-1); EOSINOPHILS % (AUTO) 0 % (1-7); LYMPHOCYTES # (AUTO) 0.89 x10^3/uL (1-3.4); LYMPHOCYTES % (AUTO) 4 % (22-44); MD SCAN; MONOCYTES # (AUTO) 0.64 x10^3/uL (0.2-0.8); MONOCYTES % (AUTO) 3 % (2-9); NEUTROPHILS % (AUTO) 92 % (42-75)
[2020-06-22 05:00] VITALS: BP 105/54
[2020-06-22] MEDS: HEPARIN 5,000 UNITS/ML, 1ML SQ SCH ×3 (05:40→20:54)
[2020-06-22] MEDS: methylPREDNISolone SOD SUCC 125 MG/2 ML IVPush SCH ×2 (08:07→16:14)
[2020-06-22] MEDS: MULTIVITS,STRESS FORMULA 1 TABLET PO SCH (08:07)
[2020-06-22] MEDS: CITALOPRAM 20 MG TABLET PO SCH (08:07)
[2020-06-22] MEDS: ZINC SULFATE 220 MG CAPSULE PO SCH (08:07)
[2020-06-22] MEDS: POTASSIUM CHLORIDE 20 MEQ TAB.ER.PRT PO SCH ×2 (08:07→16:15)
[2020-06-22] MEDS: DULOXETINE 30 MG CAPSULE.DR PO SCH (08:07)
[2020-06-22] MEDS: THIAMINE 100MG TABLET PO SCH ×2 (08:08→20:53)
[2020-06-22] MEDS: ASCORBIC ACID 500 MG TABLET NG SCH ×3 (08:08→20:53)
[2020-06-22] MEDS: ASPIRIN 81 MG TABLET EC PO SCH (08:08)
[2020-06-22] MEDS: CHOLECALCIFEROL 5,000u TAB PO SCH (08:08)
[2020-06-22] MEDS: FLUTICASONE/VILANTEROL 100-25MCG/INH INH SCH (08:08)
[2020-06-22] MEDS: SODIUM CHLORIDE FLUSH 10ML SYR IVF SCH ×2 (08:10→20:54)
[2020-06-22] MEDS: METHYLNALTREXONE 12 MG/0.6 ML SYR SQ SCH (09:00)
[2020-06-22] MEDS: FENTANYL PF 1,000 MCG in SODIUM CHLORIDE 0.9% 80 ML IV PRN (13:33)
[2020-06-22] MEDS: ERGOCALCIFEROL 50,000 UNIT CAPSULE PO SCH (13:43)
[2020-06-22] MEDS: ATORVASTATIN 80 MG TABLET PO SCH (20:52)
[2020-06-22] MEDS: TRAZODONE 50MG TABLET PO SCH (20:52)
[2020-06-22] MEDS: REMDESIVIR 100 MG in SODIUM CHLORIDE 0.9% 250 ML IVPB SCH (21:16)
[2020-06-22] MEDS: CEFTRIAXONE PMX 1GM/50ML 50 ML IV SCH (21:16)
[2020-06-23] MEDS: methylPREDNISolone SOD SUCC 125 MG/2 ML IVPush SCH (00:23)
[2020-06-23] MEDS: PROPOFOL 100 ML IV PRN ×6 (00:24→23:38)
[2020-06-23] MEDS: ALBUTEROL SULFATE 2.5 MG/3 ML INLINE SCH ×6 (02:00→22:00)
[2020-06-23] MEDS: VANCOMYCIN 50 MG/ML ORAL SUSP PO SCH ×4 (02:41→20:26)
[2020-06-23] MEDS: PANTOPRAZOLE 40 MG IV IVPush SCH ×2 (02:41→15:52)
[2020-06-23] MEDS: FENTANYL PF 1,000 MCG in SODIUM CHLORIDE 0.9% 80 ML IV PRN ×3 (02:44→20:25)
[2020-06-23 04:00] VITALS: BP 122/59
[2020-06-23] MEDS: HEPARIN 5,000 UNITS/ML, 1ML SQ SCH (05:11)
[2020-06-23 05:25] LABS: MEAN CORPUSCULAR HEMOGLOBIN 32.9 pg (27.0-34.8); MEAN CORPUSCULAR HGB CONC 34.1 g/dL (32.4-35.8); MEAN CORPUSCULAR VOLUME 96.6 fL (80-100); MEAN PLATELET VOLUME 8.5 fL (7.4-10.4); PLATELET COUNT 440 x10^3/uL (130-400); RED BLOOD COUNT 2.63 x10^6/uL (3.82-5.3); RED CELL DISTRIBUTION WIDTH 14.5 % (9.6-15.2)
[2020-06-23 05:33] LABS: CHLORIDE 118 mmol/L (98-107)
[2020-06-23 05:44] LABS: ALANINE AMINOTRANSFERASE 41 U/L (12-78); ALBUMIN 1.9 g/dL (3.4-5.0); ALKALINE PHOSPHATASE 53 U/L (45-117); ANION GAP 6 mmol/L (5-15); BILIRUBIN,TOTAL 0.6 mg/dL (0.2-1.0); CALCIUM 7.6 mg/dL (8.5-10.1); CREATININE 0.48 mg/dL (0.55-1.02); TOTAL PROTEIN 5.4 g/dL (6.4-8.2); TRIGLYCERIDES 251 mg/dL (50-200)
[2020-06-23 06:02] LABS: MD YES
[2020-06-23 06:07] LABS: BAND#(MANUAL) 0.44 x10^3/uL; BANDS%(MANUAL) 2 % (0-7); LYMPH#(MANUAL) 0.88 x10^3/uL (1-3.4); LYMPHS% (MANUAL) 4 % (22-44); METAMYELOCYTES# (MANUAL) 0.22 x10^3/uL (0-0); METAMYELOCYTES% (MANUAL) 1 % (0-1); SEG#(MANUAL) 20.37 x10^3/uL (1.8-6.8); SEGS% (MANUAL) 93 % (42-75)
[2020-06-23 06:08] LABS: POLYCHROMASIA 1+
[2020-06-23 06:09] LABS: <PLATELET ESTIMATE> INCREASED; <PLT MORPHOLOGY> NORMAL PLT MORPH; ANISOCYTOSIS 1+
[2020-06-23] MEDS: INSULIN LISPRO 100 UNITS/ML, PEN SQ-INSULIN SCH ×4 (07:00→22:21)
[2020-06-23] MEDS: DULOXETINE 30 MG CAPSULE.DR PO SCH (09:00)
[2020-06-23] MEDS: FLUTICASONE/VILANTEROL 100-25MCG/INH INH SCH (09:00)
[2020-06-23] MEDS: ZINC SULFATE 220 MG CAPSULE PO SCH (09:00)
[2020-06-23] MEDS: ASPIRIN 81 MG TABLET CHEW PO SCH (10:23)
[2020-06-23] MEDS ORDERED: ASPIRIN 81 MG TABLET CHEW ONE (10:25)
[2020-06-23] MEDS: methylPREDNISolone SOD SUCC 40 MG/ML IVPush SCH ×2 (10:39→18:30)
[2020-06-23] MEDS: CITALOPRAM 20 MG TABLET PO SCH (10:39)
[2020-06-23] MEDS: ENOXAPARIN 80 MG/0.8 ML SQ SCH ×2 (10:39→22:22)
[2020-06-23] MEDS: MULTIVITS,STRESS FORMULA 1 TABLET PO SCH (10:39)
[2020-06-23] MEDS: ASCORBIC ACID 500 MG TABLET NG SCH ×3 (10:40→20:26)
[2020-06-23] MEDS: THIAMINE 100MG TABLET PO SCH ×2 (10:44→20:27)
[2020-06-23] MEDS: SODIUM CHLORIDE FLUSH 10ML SYR IVF SCH ×2 (10:48→20:29)
[2020-06-23] MEDS: AZITHROMYCIN 500 MG in SODIUM CHLORIDE 0.9% 250 ML IV SCH (11:44)
[2020-06-23] MEDS: REMDESIVIR 100 MG in SODIUM CHLORIDE 0.9% 250 ML IVPB SCH (20:24)
[2020-06-23] MEDS: CEFTRIAXONE PMX 1GM/50ML 50 ML IV SCH (20:26)
[2020-06-23] MEDS: ATORVASTATIN 80 MG TABLET PO SCH (20:26)
[2020-06-23] MEDS: TRAZODONE 50MG TABLET PO SCH (20:26)
[2020-06-24] MEDS: ALBUTEROL SULFATE 2.5 MG/3 ML INLINE SCH ×6 (02:00→22:00)
[2020-06-24] MEDS: VANCOMYCIN 50 MG/ML ORAL SUSP PO SCH ×4 (02:20→20:49)
[2020-06-24] MEDS: PANTOPRAZOLE 40 MG IV IVPush SCH ×2 (02:20→13:34)
[2020-06-24] MEDS: methylPREDNISolone SOD SUCC 40 MG/ML IVPush SCH (02:20)
[2020-06-24] MEDS: PROPOFOL 100 ML IV PRN ×4 (03:17→19:57)
[2020-06-24 04:00] VITALS: BP 112/57
[2020-06-24] MEDS: INSULIN LISPRO 100 UNITS/ML, PEN SQ-INSULIN SCH ×4 (04:58→21:00)
[2020-06-24 05:18] LABS: MEAN CORPUSCULAR HEMOGLOBIN 31.5 pg (27.0-34.8); MEAN CORPUSCULAR HGB CONC 32.5 g/dL (32.4-35.8); MEAN CORPUSCULAR VOLUME 96.9 fL (80-100); MEAN PLATELET VOLUME 8.4 fL (7.4-10.4); PLATELET COUNT 516 x10^3/uL (130-400); RED BLOOD COUNT 2.57 x10^6/uL (3.82-5.3); RED CELL DISTRIBUTION WIDTH 14.5 % (9.6-15.2)
[2020-06-24 05:20] LABS: ALANINE AMINOTRANSFERASE 73 U/L (12-78); ALBUMIN 1.7 g/dL (3.4-5.0); ANION GAP 7 mmol/L (5-15); CALCIUM 7.2 mg/dL (8.5-10.1); CHLORIDE 114 mmol/L (98-107)
[2020-06-24 05:30] LABS: ALKALINE PHOSPHATASE 55 U/L (45-117); BILIRUBIN,TOTAL 0.5 mg/dL (0.2-1.0); CREATININE 0.54 mg/dL (0.55-1.02); TOTAL PROTEIN 5.3 g/dL (6.4-8.2)
[2020-06-24 05:51] LABS: MD YES
[2020-06-24 05:56] LABS: <PLATELET ESTIMATE> INCREASED; <PLT MORPHOLOGY> NORMAL PLT MORPH; ANISOCYTOSIS 1+; BAND#(MANUAL) 0.75 x10^3/uL; BANDS%(MANUAL) 3 % (0-7); LYMPH#(MANUAL) 0.75 x10^3/uL (1-3.4); LYMPHS% (MANUAL) 3 % (22-44); METAMYELOCYTES% (MANUAL) 2 % (0-1); MYELOCYTES# (MANUAL) 0.25 x10^3/uL (0-0); MYELOCYTES% (MANUAL) 1 % (0-0); NRBC % (MANUAL) 2 % (0-1); POLYCHROMASIA 1+; SEG#(MANUAL) 22.84 x10^3/uL (1.8-6.8); SEGS% (MANUAL) 91 % (42-75)
[2020-06-24] MEDS: FENTANYL PF 1,000 MCG in SODIUM CHLORIDE 0.9% 80 ML IV PRN ×3 (06:54→19:58)
[2020-06-24] MEDS: DEXAMETHASONE 4 MG/ML, 1ML IVPush SCH (08:11)
[2020-06-24] MEDS: ZINC SULFATE 220 MG CAPSULE PO SCH (08:12)
[2020-06-24] MEDS: CITALOPRAM 20 MG TABLET PO SCH (08:12)
[2020-06-24] MEDS: ASCORBIC ACID 500 MG TABLET NG SCH ×3 (08:12→20:50)
[2020-06-24] MEDS: MULTIVITS,STRESS FORMULA 1 TABLET PO SCH (08:12)
[2020-06-24] MEDS: METHYLNALTREXONE 12 MG/0.6 ML SYR SQ SCH (08:12)
[2020-06-24] MEDS: THIAMINE 100MG TABLET PO SCH ×2 (08:13→20:51)
[2020-06-24] MEDS: AZITHROMYCIN 500 MG in SODIUM CHLORIDE 0.9% 250 ML IV SCH (08:13)
[2020-06-24] MEDS: ASPIRIN 81 MG TABLET CHEW PO SCH (08:30)
[2020-06-24] MEDS: SODIUM CHLORIDE FLUSH 10ML SYR IVF SCH ×2 (08:30→20:50)
[2020-06-24] MEDS: ENOXAPARIN 80 MG/0.8 ML SQ SCH (10:03)
[2020-06-24] MEDS: LORazepam 2 MG/ML, 1ML IVPush PRN (10:54)
[2020-06-24 13:33] LABS: MICROSCOPIC NOT IND
[2020-06-24] MEDS ORDERED: OMNIPAQUE 350 MG/ML, 100ML BOTTLE ONE (13:43)
[2020-06-24] MEDS: METRONIDAZOLE PMX 500MG/100ML 100 ML IV SCH ×2 (14:52→23:43)
[2020-06-24] MEDS ORDERED: LIDOCAINE 1%, 10ML ONE (17:08)
[2020-06-24] MEDS ORDERED: MIDAZOLAM 1 MG/ML, 5ML ONE ×2 (18:02)
[2020-06-24] MEDS ORDERED: FENTANYL PF 100 MCG/2ML ONE (18:02)
[2020-06-24] MEDS ORDERED: PIPERACILLIN/TAZO/PMX 3.375GM 50 ML IV SCH (19:30)
[2020-06-24] MEDS: MEROPENEM 1 GM in SODIUM CHLORIDE 0.9% 100 ML IV SCH (20:29)
[2020-06-24] MEDS: REMDESIVIR 100 MG in SODIUM CHLORIDE 0.9% 250 ML IVPB SCH (20:48)
[2020-06-24] MEDS: ATORVASTATIN 80 MG TABLET PO SCH (20:50)
[2020-06-24] MEDS: TRAZODONE 50MG TABLET PO SCH (20:50)
[2020-06-25] MEDS: PANTOPRAZOLE 40 MG IV IVPush SCH ×2 (01:24→13:15)
[2020-06-25] MEDS: PROPOFOL 100 ML IV PRN ×4 (01:24→19:24)
[2020-06-25] MEDS: VANCOMYCIN 50 MG/ML ORAL SUSP PO SCH (01:53)
[2020-06-25] MEDS: ALBUTEROL SULFATE 2.5 MG/3 ML INLINE SCH ×6 (02:00→22:00)
[2020-06-25] MEDS: INSULIN LISPRO 100 UNITS/ML, PEN SQ-INSULIN SCH ×4 (03:00→21:05)
[2020-06-25 04:26] LABS: ANION GAP 3 mmol/L (5-15); CALCIUM 7.9 mg/dL (8.5-10.1); CHLORIDE 118 mmol/L (98-107); CREATININE 0.48 mg/dL (0.55-1.02)
[2020-06-25] MEDS: FENTANYL PF 1,000 MCG in SODIUM CHLORIDE 0.9% 80 ML IV PRN ×3 (04:28→22:44)
[2020-06-25] MEDS: METRONIDAZOLE PMX 500MG/100ML 100 ML IV SCH (05:48)
[2020-06-25 06:10] VITALS: BP 104/56
[2020-06-25 07:06] LABS: MEAN CORPUSCULAR HEMOGLOBIN 33.3 pg (27.0-34.8); MEAN CORPUSCULAR HGB CONC 33.7 g/dL (32.4-35.8); MEAN CORPUSCULAR VOLUME 98.7 fL (80-100); MEAN PLATELET VOLUME 8.3 fL (7.4-10.4); PLATELET COUNT 486 x10^3/uL (130-400); RED BLOOD COUNT 2.33 x10^6/uL (3.82-5.3); RED CELL DISTRIBUTION WIDTH 14.9 % (9.6-15.2)
[2020-06-25] MEDS: MEROPENEM 1 GM in SODIUM CHLORIDE 0.9% 100 ML IV SCH ×2 (07:54→19:23)
[2020-06-25 09:02] LABS: MD YES
[2020-06-25 09:03] LABS: BAND#(MANUAL) 2.38 x10^3/uL; BANDS%(MANUAL) 11 % (0-7); LYMPH#(MANUAL) 1.73 x10^3/uL (1-3.4); LYMPHS% (MANUAL) 8 % (22-44); METAMYELOCYTES# (MANUAL) 0.43 x10^3/uL (0-0); METAMYELOCYTES% (MANUAL) 2 % (0-1); MYELOCYTES# (MANUAL) 0.43 x10^3/uL (0-0); MYELOCYTES% (MANUAL) 2 % (0-0); NRBC % (MANUAL) 3 % (0-1); POLYCHROMASIA 1+; SEG#(MANUAL) 16.63 x10^3/uL (1.8-6.8); SEGS% (MANUAL) 77 % (42-75)
[2020-06-25 09:04] LABS: <PLATELET ESTIMATE> INCREASED; <PLT MORPHOLOGY> NORMAL PLT MORPH
[2020-06-25] MEDS: ASPIRIN 81 MG TABLET CHEW PO SCH (09:32)
[2020-06-25] MEDS: MULTIVITS,STRESS FORMULA 1 TABLET PO SCH (09:32)
[2020-06-25] MEDS: THIAMINE 100MG TABLET PO SCH ×2 (09:32→21:03)
[2020-06-25] MEDS: ZINC SULFATE 220 MG CAPSULE PO SCH (09:32)
[2020-06-25] MEDS: CITALOPRAM 20 MG TABLET PO SCH (09:32)
[2020-06-25] MEDS: DEXAMETHASONE 4 MG/ML, 1ML IVPush SCH (09:33)
[2020-06-25] MEDS: ASCORBIC ACID 500 MG TABLET NG SCH ×3 (09:33→21:04)
[2020-06-25] MEDS: SODIUM CHLORIDE FLUSH 10ML SYR IVF SCH ×2 (09:33→21:03)
[2020-06-25] MEDS: FUROSEMIDE 20 MG TABLET PO SCH ×2 (09:40→16:41)
[2020-06-25] MEDS: FUROSEMIDE 20 MG/2 ML IV SCH (17:45)
[2020-06-25] MEDS: TRAZODONE 50MG TABLET PO SCH (21:04)
[2020-06-25] MEDS: ATORVASTATIN 80 MG TABLET PO SCH (21:04)
[2020-06-26] MEDS: PROPOFOL 100 ML IV PRN ×4 (01:39→21:19)
[2020-06-26] MEDS: PANTOPRAZOLE 40 MG IV IVPush SCH ×2 (01:40→16:41)
[2020-06-26] MEDS: ALBUTEROL SULFATE 2.5 MG/3 ML INLINE SCH ×7 (02:00→22:35)
[2020-06-26] MEDS: INSULIN LISPRO 100 UNITS/ML, PEN SQ-INSULIN SCH ×4 (02:59→21:00)
[2020-06-26 04:54] LABS: ANION GAP 4 mmol/L (5-15); CALCIUM 8.1 mg/dL (8.5-10.1); CHLORIDE 114 mmol/L (98-107); CREATININE 0.48 mg/dL (0.55-1.02); TRIGLYCERIDES 143 mg/dL (50-200)
[2020-06-26 05:00] VITALS: BP 122/53
[2020-06-26 05:13] LABS: MEAN CORPUSCULAR HEMOGLOBIN 32.7 pg (27.0-34.8); MEAN CORPUSCULAR HGB CONC 32.5 g/dL (32.4-35.8); MEAN CORPUSCULAR VOLUME 100.5 fL (80-100); MEAN PLATELET VOLUME 8.7 fL (7.4-10.4); PLATELET COUNT 499 x10^3/uL (130-400); RED BLOOD COUNT 2.33 x10^6/uL (3.82-5.3); RED CELL DISTRIBUTION WIDTH 14.7 % (9.6-15.2)
[2020-06-26 05:51] LABS: MD YES
[2020-06-26 05:53] LABS: BAND#(MANUAL) 1.75 x10^3/uL; BANDS%(MANUAL) 8 % (0-7); EOS#(MANUAL) 0.22 x10^3/uL (0.0-0.4); EOS% (MANUAL) 1 % (1-7); LYMPH#(MANUAL) 1.31 x10^3/uL (1-3.4); LYMPHS% (MANUAL) 6 % (22-44); METAMYELOCYTES# (MANUAL) 1.31 x10^3/uL (0-0); METAMYELOCYTES% (MANUAL) 6 % (0-1); MONOS#(MANUAL) 0.22 x10^3/uL (0.3-2.7); MONOS% (MANUAL) 1 % (2-9); MYELOCYTES# (MANUAL) 0.66 x10^3/uL (0-0); MYELOCYTES% (MANUAL) 3 % (0-0); NRBC % (MANUAL) 3 % (0-1); SEG#(MANUAL) 16.43 x10^3/uL (1.8-6.8); SEGS% (MANUAL) 75 % (42-75)
[2020-06-26 05:54] LABS: POLYCHROMASIA 1+
[2020-06-26 05:55] LABS: <PLATELET ESTIMATE> INCREASED; <PLT MORPHOLOGY> NORMAL PLT MORPH
[2020-06-26] MEDS: FUROSEMIDE 20 MG/2 ML IV SCH ×2 (10:08→16:42)
[2020-06-26] MEDS: DEXAMETHASONE 4 MG/ML, 1ML IVPush SCH (10:08)
[2020-06-26] MEDS: ZINC SULFATE 220 MG CAPSULE PO SCH (10:08)
[2020-06-26] MEDS: ASPIRIN 81 MG TABLET CHEW PO SCH (10:08)
[2020-06-26] MEDS: ASCORBIC ACID 500 MG TABLET NG SCH ×3 (10:09→21:11)
[2020-06-26] MEDS: CITALOPRAM 20 MG TABLET PO SCH (10:09)
[2020-06-26] MEDS: SODIUM CHLORIDE FLUSH 10ML SYR IVF SCH ×2 (10:09→21:11)
[2020-06-26] MEDS: METHYLNALTREXONE 12 MG/0.6 ML SYR SQ SCH (10:10)
[2020-06-26 11:00] LABS: C-REACTIVE PROTEIN, QUANT 7.4 mg/dL (0.02-0.49)
[2020-06-26] MEDS: THIAMINE 100MG TABLET PO SCH ×2 (11:22→21:11)
[2020-06-26] MEDS: MEROPENEM 1 GM in SODIUM CHLORIDE 0.9% 100 ML IV SCH ×2 (11:22→20:00)
[2020-06-26] MEDS: FENTANYL PF 1,000 MCG in SODIUM CHLORIDE 0.9% 80 ML IV PRN (13:19)
[2020-06-26] MEDS: MULTIVITAMIN 1 TABLET PO SCH (16:41)
[2020-06-26] MEDS: ATORVASTATIN 80 MG TABLET PO SCH (21:11)
[2020-06-26] MEDS: TRAZODONE 50MG TABLET PO SCH (21:11)
[2020-06-27] MEDS: PANTOPRAZOLE 40 MG IV IVPush SCH ×2 (01:38→14:14)
[2020-06-27] MEDS: PROPOFOL 100 ML IV PRN ×5 (01:41→22:07)
[2020-06-27] MEDS: ALBUTEROL SULFATE 2.5 MG/3 ML INLINE SCH ×5 (02:00→19:19)
[2020-06-27] MEDS: INSULIN LISPRO 100 UNITS/ML, PEN SQ-INSULIN SCH ×4 (02:17→21:12)
[2020-06-27] MEDS: FENTANYL PF 1,000 MCG in SODIUM CHLORIDE 0.9% 80 ML IV PRN ×3 (02:17→21:14)
[2020-06-27 04:20] LABS: ANION GAP 6 mmol/L (5-15); CALCIUM 7.8 mg/dL (8.5-10.1); CHLORIDE 111 mmol/L (98-107); CREATININE 0.45 mg/dL (0.55-1.02)
[2020-06-27 04:23] LABS: PREALBUMIN 16.1 mg/dL (20.0-40.0)
[2020-06-27 04:48] LABS: MEAN CORPUSCULAR HEMOGLOBIN 31.7 pg (27.0-34.8); MEAN CORPUSCULAR HGB CONC 31.8 g/dL (32.4-35.8); MEAN CORPUSCULAR VOLUME 99.9 fL (80-100); MEAN PLATELET VOLUME 8.6 fL (7.4-10.4); PLATELET COUNT 426 x10^3/uL (130-400); RED CELL DISTRIBUTION WIDTH 14.9 % (9.6-15.2)
[2020-06-27 05:00] VITALS: BP 94/43
[2020-06-27 05:37] LABS: MD YES
[2020-06-27 05:39] LABS: BAND#(MANUAL) 1.59 x10^3/uL; BANDS%(MANUAL) 8 % (0-7); LYMPHS% (MANUAL) 5 % (22-44); METAMYELOCYTES% (MANUAL) 2 % (0-1); MONOS% (MANUAL) 2 % (2-9); MYELOCYTES% (MANUAL) 1 % (0-0); NRBC % (MANUAL) 1 % (0-1); POLYCHROMASIA 1+; SEG#(MANUAL) 16.32 x10^3/uL (1.8-6.8); SEGS% (MANUAL) 82 % (42-75)
[2020-06-27 05:40] LABS: <PLATELET ESTIMATE> INCREASED; <PLT MORPHOLOGY> NORMAL PLT MORPH
[2020-06-27] MEDS: DEXAMETHASONE 4 MG/ML, 1ML IVPush SCH (08:10)
[2020-06-27] MEDS: CITALOPRAM 20 MG TABLET PO SCH (08:10)
[2020-06-27] MEDS: ZINC SULFATE 220 MG CAPSULE PO SCH (08:10)
[2020-06-27] MEDS: MULTIVITAMIN 1 TABLET PO SCH (08:10)
[2020-06-27] MEDS: ASCORBIC ACID 500 MG TABLET NG SCH ×3 (08:10→21:05)
[2020-06-27] MEDS: ASPIRIN 81 MG TABLET CHEW PO SCH (08:10)
[2020-06-27] MEDS: FUROSEMIDE 20 MG/2 ML IV SCH ×2 (08:10→16:12)
[2020-06-27] MEDS: SODIUM CHLORIDE FLUSH 10ML SYR IVF SCH ×2 (08:11→21:00)
[2020-06-27] MEDS: THIAMINE 100MG TABLET PO SCH ×2 (08:11→21:05)
[2020-06-27] MEDS: MEROPENEM 1 GM in SODIUM CHLORIDE 0.9% 100 ML IV SCH ×2 (09:47→20:14)
[2020-06-27] MEDS: QUETIAPINE 25MG TABLET NG SCH ×3 (09:48→21:05)
[2020-06-27] MEDS: ATORVASTATIN 80 MG TABLET PO SCH (21:05)
[2020-06-27] MEDS: TRAZODONE 50MG TABLET PO SCH (21:05)
[2020-06-28] MEDS: PANTOPRAZOLE 40 MG IV IVPush SCH ×2 (02:33→14:00)
[2020-06-28] MEDS: PROPOFOL 100 ML IV PRN ×4 (02:34→19:55)
[2020-06-28] MEDS: INSULIN LISPRO 100 UNITS/ML, PEN SQ-INSULIN SCH ×4 (02:45→19:59)
[2020-06-28] MEDS: ALBUTEROL SULFATE 2.5 MG/3 ML INLINE SCH ×6 (03:06→22:00)
[2020-06-28 05:00] VITALS: BP 128/60
[2020-06-28 05:57] LABS: ANION GAP 3 mmol/L (5-15); CALCIUM 7.8 mg/dL (8.5-10.1); CHLORIDE 107 mmol/L (98-107); CREATININE 0.52 mg/dL (0.55-1.02)
[2020-06-28 06:13] LABS: MEAN CORPUSCULAR HEMOGLOBIN 31.7 pg (27.0-34.8); MEAN CORPUSCULAR HGB CONC 31.6 g/dL (32.4-35.8); MEAN CORPUSCULAR VOLUME 100.3 fL (80-100); MEAN PLATELET VOLUME 8.5 fL (7.4-10.4); PLATELET COUNT 433 x10^3/uL (130-400); RED BLOOD COUNT 2.13 x10^6/uL (3.82-5.3); RED CELL DISTRIBUTION WIDTH 15.5 % (9.6-15.2)
[2020-06-28 06:14] LABS: MD YES
[2020-06-28 06:20] LABS: BAND#(MANUAL) 0.54 x10^3/uL; BANDS%(MANUAL) 3 % (0-7); LYMPHS% (MANUAL) 10 % (22-44); METAMYELOCYTES# (MANUAL) 1.08 x10^3/uL (0-0); METAMYELOCYTES% (MANUAL) 6 % (0-1); MONOS#(MANUAL) 0.18 x10^3/uL (0.3-2.7); MONOS% (MANUAL) 1 % (2-9); MYELOCYTES# (MANUAL) 0.54 x10^3/uL (0-0); MYELOCYTES% (MANUAL) 3 % (0-0); NRBC % (MANUAL) 1 % (0-1); SEG#(MANUAL) 13.86 x10^3/uL (1.8-6.8); SEGS% (MANUAL) 77 % (42-75)
[2020-06-28 06:21] LABS: POLYCHROMASIA 1+
[2020-06-28 06:23] LABS: <PLATELET ESTIMATE> INCREASED; <PLT MORPHOLOGY> NORMAL PLT MORPH
[2020-06-28 06:25] LABS: ANISOCYTOSIS 1+
[2020-06-28] MEDS: THIAMINE 100MG TABLET PO SCH ×2 (07:56→19:54)
[2020-06-28] MEDS: ZINC SULFATE 220 MG CAPSULE PO SCH (07:56)
[2020-06-28] MEDS: MULTIVITAMIN 1 TABLET PO SCH (07:56)
[2020-06-28] MEDS: DEXAMETHASONE 4 MG/ML, 1ML IVPush SCH (07:56)
[2020-06-28] MEDS: ASCORBIC ACID 500 MG TABLET NG SCH ×3 (07:56→19:54)
[2020-06-28] MEDS: QUETIAPINE 25MG TABLET NG SCH ×3 (07:56→19:54)
[2020-06-28] MEDS: ASPIRIN 81 MG TABLET CHEW PO SCH (07:57)
[2020-06-28] MEDS: SODIUM CHLORIDE FLUSH 10ML SYR IVF SCH ×2 (07:57→19:58)
[2020-06-28] MEDS: MEROPENEM 1 GM in SODIUM CHLORIDE 0.9% 100 ML IV SCH ×2 (07:57→20:02)
[2020-06-28] MEDS: FENTANYL PF 1,000 MCG in SODIUM CHLORIDE 0.9% 80 ML IV PRN ×2 (07:57→17:31)
[2020-06-28] MEDS: METHYLNALTREXONE 12 MG/0.6 ML SYR SQ SCH (08:31)
[2020-06-28 09:50] VITALS: BP 146/72
[2020-06-28] MEDS: FUROSEMIDE 20 MG/2 ML IV SCH ×2 (10:05→16:35)
[2020-06-28] MEDS: CITALOPRAM 20 MG TABLET PO SCH (10:05)
[2020-06-28 10:10] VITALS: BP 145/72
[2020-06-28 10:25] VITALS: BP 162/67
[2020-06-28 11:30] VITALS: BP 120/53
[2020-06-28 12:10] VITALS: BP 127/53
[2020-06-28] MEDS: ATORVASTATIN 80 MG TABLET PO SCH (19:54)
[2020-06-28] MEDS: TRAZODONE 50MG TABLET PO SCH (19:54)
[2020-06-29] MEDS: PANTOPRAZOLE 40 MG IV IVPush SCH ×2 (00:58→14:29)
[2020-06-29] MEDS: ALBUTEROL SULFATE 2.5 MG/3 ML INLINE SCH ×6 (02:00→22:00)
[2020-06-29] MEDS: INSULIN LISPRO 100 UNITS/ML, PEN SQ-INSULIN SCH ×4 (03:00→21:00)
[2020-06-29] MEDS: PROPOFOL 100 ML IV PRN ×5 (03:04→21:19)
[2020-06-29 03:29] LABS: ANION GAP 3 mmol/L (5-15); CHLORIDE 106 mmol/L (98-107); CREATININE 0.41 mg/dL (0.55-1.02); TRIGLYCERIDES 133 mg/dL (50-200)
[2020-06-29 04:00] VITALS: BP 125/62
[2020-06-29 04:07] LABS: MEAN CORPUSCULAR HEMOGLOBIN 32.8 pg (27.0-34.8); MEAN CORPUSCULAR HGB CONC 33.4 g/dL (32.4-35.8); MEAN CORPUSCULAR VOLUME 98.4 fL (80-100); MEAN PLATELET VOLUME 8.7 fL (7.4-10.4); PLATELET COUNT 414 x10^3/uL (130-400); RED BLOOD COUNT 2.68 x10^6/uL (3.82-5.3); RED CELL DISTRIBUTION WIDTH 16.5 % (9.6-15.2)
[2020-06-29 04:29] LABS: MD YES
[2020-06-29 04:31] LABS: EOS#(MANUAL) 0.19 x10^3/uL (0.0-0.4); EOS% (MANUAL) 1 % (1-7); LYMPH#(MANUAL) 2.88 x10^3/uL (1-3.4); LYMPHS% (MANUAL) 15 % (22-44); MONOS#(MANUAL) 0.58 x10^3/uL (0.3-2.7); MONOS% (MANUAL) 3 % (2-9); NRBC % (MANUAL) 1 % (0-1); SEG#(MANUAL) 15.55 x10^3/uL (1.8-6.8); SEGS% (MANUAL) 81 % (42-75)
[2020-06-29 04:32] LABS: ANISOCYTOSIS 1+; POLYCHROMASIA 1+
[2020-06-29 04:33] LABS: <PLATELET ESTIMATE> INCREASED; <PLT MORPHOLOGY> NORMAL PLT MORPH
[2020-06-29] MEDS: FENTANYL PF 1,000 MCG in SODIUM CHLORIDE 0.9% 80 ML IV PRN ×2 (06:04→17:21)
[2020-06-29] MEDS: SODIUM CHLORIDE FLUSH 10ML SYR IVF SCH ×2 (08:06→21:21)
[2020-06-29] MEDS: MEROPENEM 1 GM in SODIUM CHLORIDE 0.9% 100 ML IV SCH ×2 (08:06→21:19)
[2020-06-29] MEDS: QUETIAPINE 25MG TABLET NG SCH ×3 (08:08→21:20)
[2020-06-29] MEDS: ZINC SULFATE 220 MG CAPSULE PO SCH (08:08)
[2020-06-29] MEDS: ASCORBIC ACID 500 MG TABLET NG SCH ×3 (08:08→21:19)
[2020-06-29] MEDS: MULTIVITAMIN 1 TABLET PO SCH (08:08)
[2020-06-29] MEDS: ASPIRIN 81 MG TABLET CHEW PO SCH (08:08)
[2020-06-29] MEDS: DEXAMETHASONE 4 MG/ML, 1ML IVPush SCH (08:09)
[2020-06-29] MEDS: CITALOPRAM 20 MG TABLET PO SCH (08:09)
[2020-06-29] MEDS: THIAMINE 100MG TABLET PO SCH ×2 (08:09→21:20)
[2020-06-29] MEDS: ERGOCALCIFEROL 50,000 UNIT CAPSULE PO SCH (14:28)
[2020-06-29] MEDS: ATORVASTATIN 80 MG TABLET PO SCH (21:19)
[2020-06-29] MEDS: TRAZODONE 50MG TABLET PO SCH (21:20)
[2020-06-30] MEDS: PROPOFOL 100 ML IV PRN ×5 (00:31→20:23)
[2020-06-30] MEDS: PANTOPRAZOLE 40 MG IV IVPush SCH ×2 (00:31→14:14)
[2020-06-30] MEDS: ALBUTEROL SULFATE 2.5 MG/3 ML INLINE SCH ×6 (02:00→22:00)
[2020-06-30] MEDS: INSULIN LISPRO 100 UNITS/ML, PEN SQ-INSULIN SCH ×4 (03:00→20:52)
[2020-06-30 03:25] LABS: MEAN CORPUSCULAR HEMOGLOBIN 35.2 pg (27.0-34.8); MEAN CORPUSCULAR HGB CONC 34.1 g/dL (32.4-35.8); MEAN CORPUSCULAR VOLUME 103.2 fL (80-100); MEAN PLATELET VOLUME 8.4 fL (7.4-10.4); PLATELET COUNT 378 x10^3/uL (130-400); RED BLOOD COUNT 2.29 x10^6/uL (3.82-5.3); RED CELL DISTRIBUTION WIDTH 16.8 % (9.6-15.2)
[2020-06-30 03:35] LABS: ALBUMIN 1.7 g/dL (3.4-5.0); ANION GAP 0 mmol/L (5-15); CALCIUM 7.8 mg/dL (8.5-10.1); CHLORIDE 110 mmol/L (98-107)
[2020-06-30 03:43] LABS: ALANINE AMINOTRANSFERASE 29 U/L (12-78); ALKALINE PHOSPHATASE 65 U/L (45-117); CREATININE 0.35 mg/dL (0.55-1.02); TOTAL PROTEIN 4.8 g/dL (6.4-8.2)
[2020-06-30 04:12] VITALS: BP 132/56
[2020-06-30 04:18] LABS: MD YES
[2020-06-30 04:23] LABS: BAND#(MANUAL) 0.47 x10^3/uL; BANDS%(MANUAL) 3 % (0-7); EOS#(MANUAL) 0.16 x10^3/uL (0.0-0.4); EOS% (MANUAL) 1 % (1-7); LYMPH#(MANUAL) 1.24 x10^3/uL (1-3.4); LYMPHS% (MANUAL) 8 % (22-44); METAMYELOCYTES# (MANUAL) 0.31 x10^3/uL (0-0); METAMYELOCYTES% (MANUAL) 2 % (0-1); MONOS#(MANUAL) 0.78 x10^3/uL (0.3-2.7); MONOS% (MANUAL) 5 % (2-9); MYELOCYTES# (MANUAL) 0.16 x10^3/uL (0-0); MYELOCYTES% (MANUAL) 1 % (0-0); SEGS% (MANUAL) 80 % (42-75)
[2020-06-30 04:24] LABS: POLYCHROMASIA 1+
[2020-06-30 04:25] LABS: <PLATELET ESTIMATE> ADEQUATE; ANISOCYTOSIS 1+
[2020-06-30 04:26] LABS: <PLT MORPHOLOGY> NORMAL PLT MORPH
[2020-06-30] MEDS: FENTANYL PF 1,000 MCG in SODIUM CHLORIDE 0.9% 80 ML IV PRN ×2 (04:56→16:00)
[2020-06-30] MEDS: CITALOPRAM 20 MG TABLET PO SCH (08:42)
[2020-06-30] MEDS: ZINC SULFATE 220 MG CAPSULE PO SCH (08:42)
[2020-06-30] MEDS: ASCORBIC ACID 500 MG TABLET NG SCH ×3 (08:42→20:30)
[2020-06-30] MEDS: ASPIRIN 81 MG TABLET CHEW PO SCH (08:42)
[2020-06-30] MEDS: QUETIAPINE 25MG TABLET NG SCH ×3 (08:42→20:31)
[2020-06-30] MEDS: THIAMINE 100MG TABLET PO SCH ×2 (08:42→20:30)
[2020-06-30] MEDS: MULTIVITAMIN 1 TABLET PO SCH (08:42)
[2020-06-30] MEDS: SODIUM CHLORIDE FLUSH 10ML SYR IVF SCH ×2 (08:43→20:30)
[2020-06-30] MEDS: MEROPENEM 1 GM in SODIUM CHLORIDE 0.9% 100 ML IV SCH ×2 (08:43→20:19)
[2020-06-30] MEDS: DEXAMETHASONE 4 MG/ML, 1ML IVPush SCH (08:51)
[2020-06-30] MEDS: TRAZODONE 50MG TABLET PO SCH (20:30)
[2020-06-30] MEDS: ATORVASTATIN 80 MG TABLET PO SCH (20:30)
[2020-06-30] MEDS: MIDAZOLAM HCL 50 MG in SODIUM CHLORIDE 0.9% 40 ML IV PRN (21:52)
[2020-07-01] MEDS: PANTOPRAZOLE 40 MG IV IVPush SCH ×2 (00:38→14:04)
[2020-07-01] MEDS: PROPOFOL 100 ML IV PRN ×3 (00:48→20:21)
[2020-07-01] MEDS: INSULIN LISPRO 100 UNITS/ML, PEN SQ-INSULIN SCH ×4 (03:00→19:44)
[2020-07-01] MEDS: ALBUTEROL SULFATE 2.5 MG/3 ML INLINE SCH ×6 (03:20→22:25)
[2020-07-01 03:56] LABS: ANION GAP 2 mmol/L (5-15); CALCIUM 7.9 mg/dL (8.5-10.1); CHLORIDE 108 mmol/L (98-107); CREATININE 0.32 mg/dL (0.55-1.02)
[2020-07-01 04:28] VITALS: BP 99/46
[2020-07-01 04:34] LABS: MD YES; MEAN CORPUSCULAR HEMOGLOBIN 31.5 pg (27.0-34.8); MEAN CORPUSCULAR HGB CONC 31.4 g/dL (32.4-35.8); MEAN CORPUSCULAR VOLUME 100.5 fL (80-100); MEAN PLATELET VOLUME 8.7 fL (7.4-10.4); PLATELET COUNT 379 x10^3/uL (130-400); RED BLOOD COUNT 2.56 x10^6/uL (3.82-5.3); RED CELL DISTRIBUTION WIDTH 17.9 % (9.6-15.2)
[2020-07-01 05:42] LABS: ANISOCYTOSIS 1+; BAND#(MANUAL) 0.29 x10^3/uL; BANDS%(MANUAL) 2 % (0-7); LYMPH#(MANUAL) 1.32 x10^3/uL (1-3.4); LYMPHS% (MANUAL) 9 % (22-44); METAMYELOCYTES# (MANUAL) 0.15 x10^3/uL (0-0); METAMYELOCYTES% (MANUAL) 1 % (0-1); MONOS#(MANUAL) 0.44 x10^3/uL (0.3-2.7); MONOS% (MANUAL) 3 % (2-9); NRBC % (MANUAL) 2 % (0-1); POLYCHROMASIA 1+; SEGS% (MANUAL) 85 % (42-75)
[2020-07-01 05:43] LABS: <PLATELET ESTIMATE> ADEQUATE; <PLT MORPHOLOGY> NORMAL PLT MORPH
[2020-07-01] MEDS: FENTANYL PF 1,000 MCG in SODIUM CHLORIDE 0.9% 80 ML IV PRN (05:48)
[2020-07-01] MEDS: MIDAZOLAM HCL 50 MG in SODIUM CHLORIDE 0.9% 40 ML IV PRN ×2 (05:48→20:19)
[2020-07-01] MEDS: MEROPENEM 1 GM in SODIUM CHLORIDE 0.9% 100 ML IV SCH ×2 (08:10→19:45)
[2020-07-01] MEDS: DEXAMETHASONE 4 MG/ML, 1ML IVPush SCH (08:10)
[2020-07-01] MEDS: THIAMINE 100MG TABLET PO SCH ×2 (08:11→19:44)
[2020-07-01] MEDS: ZINC SULFATE 220 MG CAPSULE PO SCH (08:11)
[2020-07-01] MEDS: ASPIRIN 81 MG TABLET CHEW PO SCH (08:11)
[2020-07-01] MEDS: CITALOPRAM 20 MG TABLET PO SCH (08:11)
[2020-07-01] MEDS: QUETIAPINE 25MG TABLET NG SCH (08:11)
[2020-07-01] MEDS: MULTIVITAMIN 1 TABLET PO SCH (08:11)
[2020-07-01] MEDS: ASCORBIC ACID 500 MG TABLET NG SCH ×3 (08:11→19:45)
[2020-07-01] MEDS: SODIUM CHLORIDE FLUSH 10ML SYR IVF SCH ×2 (08:12→19:23)
[2020-07-01] MEDS ORDERED: AcetaZOLAMIDE INJ 500 MG IVPush ONE (09:00)
[2020-07-01] MEDS ORDERED: POTASSIUM CHLORIDE 10% 40 MEQ/30 ML UDC PO ONE (11:00)
[2020-07-01] MEDS: LORazepam 2 MG/ML, 1ML IVPush PRN (15:48)
[2020-07-01] MEDS: TRAZODONE 50MG TABLET PO SCH (19:45)
[2020-07-01] MEDS: ATORVASTATIN 80 MG TABLET PO SCH (19:45)
[2020-07-02] MEDS: FENTANYL PF 1,000 MCG in SODIUM CHLORIDE 0.9% 80 ML IV PRN (01:01)
[2020-07-02] MEDS: PROPOFOL 100 ML IV PRN ×6 (01:02→22:08)
[2020-07-02] MEDS: PANTOPRAZOLE 40 MG IV IVPush SCH ×2 (01:02→13:08)
[2020-07-02] MEDS: ALBUTEROL SULFATE 2.5 MG/3 ML INLINE SCH ×6 (03:10→22:50)
[2020-07-02] MEDS: INSULIN LISPRO 100 UNITS/ML, PEN SQ-INSULIN SCH ×4 (03:44→20:18)
[2020-07-02 03:57] VITALS: BP 93/70
[2020-07-02 04:03] LABS: ANION GAP 3 mmol/L (5-15); CALCIUM 9.1 mg/dL (8.5-10.1); CHLORIDE 114 mmol/L (98-107); CREATININE 0.37 mg/dL (0.55-1.02); TRIGLYCERIDES 154 mg/dL (50-200)
[2020-07-02 04:30] LABS: MEAN CORPUSCULAR HGB CONC 32.7 g/dL (32.4-35.8); MEAN CORPUSCULAR VOLUME 101.1 fL (80-100); MEAN PLATELET VOLUME 8.8 fL (7.4-10.4); PLATELET COUNT 364 x10^3/uL (130-400); RED BLOOD COUNT 2.85 x10^6/uL (3.82-5.3); RED CELL DISTRIBUTION WIDTH 20.7 % (9.6-15.2)
[2020-07-02 04:56] LABS: MD YES
[2020-07-02 05:00] LABS: BAND#(MANUAL) 0.16 x10^3/uL; BANDS%(MANUAL) 1 % (0-7); EOS#(MANUAL) 0.16 x10^3/uL (0.0-0.4); EOS% (MANUAL) 1 % (1-7); LYMPH#(MANUAL) 1.15 x10^3/uL (1-3.4); LYMPHS% (MANUAL) 7 % (22-44); MONOS#(MANUAL) 0.16 x10^3/uL (0.3-2.7); MONOS% (MANUAL) 1 % (2-9); MYELOCYTES# (MANUAL) 0.16 x10^3/uL (0-0); MYELOCYTES% (MANUAL) 1 % (0-0); NRBC % (MANUAL) 1 % (0-1); SEGS% (MANUAL) 89 % (42-75)
[2020-07-02 05:01] LABS: <PLATELET ESTIMATE> ADEQUATE; ANISOCYTOSIS 1+; POLYCHROMASIA 1+
[2020-07-02 05:02] LABS: <PLT MORPHOLOGY> NORMAL PLT MORPH
[2020-07-02] MEDS: ASCORBIC ACID 500 MG TABLET NG SCH ×3 (08:09→20:17)
[2020-07-02] MEDS: CITALOPRAM 20 MG TABLET PO SCH (08:09)
[2020-07-02] MEDS: THIAMINE 100MG TABLET PO SCH ×2 (08:09→20:17)
[2020-07-02] MEDS: MULTIVITAMIN 1 TABLET PO SCH (08:09)
[2020-07-02] MEDS: ZINC SULFATE 220 MG CAPSULE PO SCH (08:09)
[2020-07-02] MEDS: DEXAMETHASONE 4 MG/ML, 1ML IVPush SCH (08:10)
[2020-07-02] MEDS: MEROPENEM 1 GM in SODIUM CHLORIDE 0.9% 100 ML IV SCH ×2 (08:10→20:17)
[2020-07-02] MEDS: ASPIRIN 81 MG TABLET CHEW PO SCH (08:10)
[2020-07-02] MEDS: SODIUM CHLORIDE FLUSH 10ML SYR IVF SCH ×2 (08:11→20:18)
[2020-07-02] MEDS: MIDAZOLAM HCL 50 MG in SODIUM CHLORIDE 0.9% 40 ML IV PRN (17:17)
[2020-07-02] MEDS: ATORVASTATIN 80 MG TABLET PO SCH (20:17)
[2020-07-02] MEDS: TRAZODONE 50MG TABLET PO SCH (20:17)
[2020-07-03] MEDS: FENTANYL PF 1,000 MCG in SODIUM CHLORIDE 0.9% 80 ML IV PRN ×2 (01:01→17:44)
[2020-07-03] MEDS: PANTOPRAZOLE 40 MG IV IVPush SCH ×2 (01:01→12:48)
[2020-07-03] MEDS: ALBUTEROL SULFATE 2.5 MG/3 ML INLINE SCH ×6 (02:45→23:22)
[2020-07-03] MEDS: INSULIN LISPRO 100 UNITS/ML, PEN SQ-INSULIN SCH ×4 (03:00→20:15)
[2020-07-03] MEDS: PROPOFOL 100 ML IV PRN ×5 (03:38→21:19)
[2020-07-03 03:51] LABS: ANION GAP 3 mmol/L (5-15); CALCIUM 7.9 mg/dL (8.5-10.1); CHLORIDE 113 mmol/L (98-107); CREATININE 0.31 mg/dL (0.55-1.02)
[2020-07-03 04:04] LABS: MD YES; MEAN CORPUSCULAR HGB CONC 32.6 g/dL (32.4-35.8); MEAN CORPUSCULAR VOLUME 101.3 fL (80-100); MEAN PLATELET VOLUME 9.1 fL (7.4-10.4); PLATELET COUNT 322 x10^3/uL (130-400); RED BLOOD COUNT 2.81 x10^6/uL (3.82-5.3); RED CELL DISTRIBUTION WIDTH 20.9 % (9.6-15.2)
[2020-07-03 04:06] LABS: <PLATELET ESTIMATE> ADEQUATE; <PLT MORPHOLOGY> NORMAL PLT MORPH; ANISOCYTOSIS 1+; BAND#(MANUAL) 0.16 x10^3/uL; BANDS%(MANUAL) 1 % (0-7); LYMPH#(MANUAL) 1.59 x10^3/uL (1-3.4); LYMPHS% (MANUAL) 10 % (22-44); METAMYELOCYTES# (MANUAL) 0.16 x10^3/uL (0-0); METAMYELOCYTES% (MANUAL) 1 % (0-1); MONOS#(MANUAL) 0.64 x10^3/uL (0.3-2.7); MONOS% (MANUAL) 4 % (2-9); POLYCHROMASIA 1+; SEG#(MANUAL) 13.36 x10^3/uL (1.8-6.8); SEGS% (MANUAL) 84 % (42-75)
[2020-07-03 05:00] VITALS: BP 145/62
[2020-07-03] MEDS: SODIUM CHLORIDE FLUSH 10ML SYR IVF SCH ×2 (07:22→20:15)
[2020-07-03] MEDS: DEXAMETHASONE 4 MG/ML, 1ML IVPush SCH (07:53)
[2020-07-03] MEDS: MEROPENEM 1 GM in SODIUM CHLORIDE 0.9% 100 ML IV SCH ×2 (07:53→20:03)
[2020-07-03] MEDS: ASCORBIC ACID 500 MG TABLET NG SCH ×3 (07:53→20:05)
[2020-07-03] MEDS: ASPIRIN 81 MG TABLET CHEW PO SCH (07:53)
[2020-07-03] MEDS: ZINC SULFATE 220 MG CAPSULE PO SCH (07:53)
[2020-07-03] MEDS: CITALOPRAM 20 MG TABLET PO SCH (07:54)
[2020-07-03] MEDS: THIAMINE 100MG TABLET PO SCH ×2 (07:54→20:05)
[2020-07-03] MEDS: MULTIVITAMIN 1 TABLET PO SCH (07:57)
[2020-07-03] MEDS: VANCOMYCIN 50 MG/ML ORAL SUSP PO SCH ×3 (10:11→20:04)
[2020-07-03] MEDS: MIDAZOLAM HCL 50 MG in SODIUM CHLORIDE 0.9% 40 ML IV PRN (12:47)
[2020-07-03] MEDS ORDERED: MIDAZOLAM 1 MG/ML, 5ML ONE (14:18)
[2020-07-03] MEDS ORDERED: VECURONIUM 10 MG ONE (14:18)
[2020-07-03] MEDS ORDERED: FENTANYL PF 100 MCG/2ML IVPush ONE (16:00)
[2020-07-03] MEDS ORDERED: MIDAZOLAM 1 MG/ML, 5ML IVPush ONE (16:00)
[2020-07-03] MEDS ORDERED: VECURONIUM 10 MG IVPush ONE (16:00)
[2020-07-03] MEDS: ATORVASTATIN 80 MG TABLET PO SCH (20:04)
[2020-07-03] MEDS: TRAZODONE 50MG TABLET PO SCH (20:05)
[2020-07-04] MEDS: MIDAZOLAM HCL 50 MG in SODIUM CHLORIDE 0.9% 40 ML IV PRN (01:16)
[2020-07-04] MEDS: ALBUTEROL SULFATE 2.5 MG/3 ML INLINE SCH ×6 (02:35→22:31)
[2020-07-04] MEDS: PROPOFOL 100 ML IV PRN ×3 (02:56→10:43)
[2020-07-04] MEDS: PANTOPRAZOLE 40 MG IV IVPush SCH ×2 (02:56→14:41)
[2020-07-04] MEDS: VANCOMYCIN 50 MG/ML ORAL SUSP PO SCH ×4 (02:57→20:39)
[2020-07-04] MEDS: INSULIN LISPRO 100 UNITS/ML, PEN SQ-INSULIN SCH ×2 (03:00→08:08)
[2020-07-04 03:29] LABS: ANION GAP 3 mmol/L (5-15); CHLORIDE 111 mmol/L (98-107); CREATININE 0.26 mg/dL (0.55-1.02)
[2020-07-04 03:33] LABS: PREALBUMIN 25.7 mg/dL (20.0-40.0)
[2020-07-04 03:40] LABS: MEAN CORPUSCULAR HEMOGLOBIN 32.5 pg (27.0-34.8); MEAN CORPUSCULAR HGB CONC 31.7 g/dL (32.4-35.8); MEAN CORPUSCULAR VOLUME 102.3 fL (80-100); PLATELET COUNT 321 x10^3/uL (130-400); RED BLOOD COUNT 3.08 x10^6/uL (3.82-5.3); RED CELL DISTRIBUTION WIDTH 20.1 % (9.6-15.2)
[2020-07-04 03:55] LABS: MD YES
[2020-07-04 03:57] LABS: EOS#(MANUAL) 0.28 x10^3/uL (0.0-0.4); EOS% (MANUAL) 2 % (1-7); LYMPH#(MANUAL) 1.39 x10^3/uL (1-3.4); LYMPHS% (MANUAL) 10 % (22-44); METAMYELOCYTES# (MANUAL) 0.14 x10^3/uL (0-0); METAMYELOCYTES% (MANUAL) 1 % (0-1); SEG#(MANUAL) 12.09 x10^3/uL (1.8-6.8); SEGS% (MANUAL) 87 % (42-75)
[2020-07-04 03:58] LABS: <PLATELET ESTIMATE> ADEQUATE; <PLT MORPHOLOGY> NORMAL PLT MORPH; ANISOCYTOSIS 1+; POLYCHROMASIA 1+
[2020-07-04 05:00] VITALS: BP 157/82
[2020-07-04] MEDS: MEROPENEM 1 GM in SODIUM CHLORIDE 0.9% 100 ML IV SCH (08:05)
[2020-07-04] MEDS: CITALOPRAM 20 MG TABLET PO SCH (08:07)
[2020-07-04] MEDS: SODIUM CHLORIDE FLUSH 10ML SYR IVF SCH ×2 (08:07→20:38)
[2020-07-04] MEDS: MULTIVITAMIN 1 TABLET PO SCH (08:07)
[2020-07-04] MEDS: DEXAMETHASONE 4 MG/ML, 1ML IVPush SCH (08:07)
[2020-07-04] MEDS: ASCORBIC ACID 500 MG TABLET NG SCH ×3 (08:07→20:38)
[2020-07-04] MEDS: ASPIRIN 81 MG TABLET CHEW PO SCH (08:07)
[2020-07-04] MEDS: ZINC SULFATE 220 MG CAPSULE PO SCH (08:08)
[2020-07-04] MEDS: THIAMINE 100MG TABLET PO SCH ×2 (08:08→20:39)
[2020-07-04] MEDS ORDERED: METOPROLOL TARTRATE 25 MG TAB ONE (10:19)
[2020-07-04] MEDS: RISPERIDONE 1 MG TABLET PO SCH ×2 (10:35→20:38)
[2020-07-04] MEDS: METOPROLOL TARTRATE 25 MG TAB PO SCH ×2 (10:35→18:59)
[2020-07-04] MEDS: FENTANYL PF 1,000 MCG in SODIUM CHLORIDE 0.9% 80 ML IV PRN (14:41)
[2020-07-04] MEDS: LABETALOL 5MG/ML, 20ML IVPush PRN (16:34)
[2020-07-04] MEDS: ATORVASTATIN 80 MG TABLET PO SCH (20:39)
[2020-07-04] MEDS: TRAZODONE 50MG TABLET PO SCH (20:39)
[2020-07-05] MEDS: MIDAZOLAM HCL 50 MG in SODIUM CHLORIDE 0.9% 40 ML IV PRN (01:10)
[2020-07-05] MEDS: PANTOPRAZOLE 40 MG IV IVPush SCH ×2 (02:45→14:06)
[2020-07-05] MEDS: VANCOMYCIN 50 MG/ML ORAL SUSP PO SCH ×4 (02:45→21:34)
[2020-07-05] MEDS: METOPROLOL TARTRATE 25 MG TAB PO SCH ×3 (02:46→17:52)
[2020-07-05] MEDS: ALBUTEROL SULFATE 2.5 MG/3 ML INLINE SCH ×6 (03:25→22:20)
[2020-07-05 04:00] VITALS: BP 176/71
[2020-07-05] MEDS: FENTANYL PF 1,000 MCG in SODIUM CHLORIDE 0.9% 80 ML IV PRN ×2 (04:56→19:23)
[2020-07-05] MEDS: LABETALOL 5MG/ML, 20ML IVPush PRN (04:57)
[2020-07-05 05:15] LABS: ANION GAP 5 mmol/L (5-15); CALCIUM 7.8 mg/dL (8.5-10.1); CHLORIDE 112 mmol/L (98-107); CREATININE 0.34 mg/dL (0.55-1.02); TRIGLYCERIDES 181 mg/dL (50-200)
[2020-07-05 05:31] LABS: MEAN CORPUSCULAR HEMOGLOBIN 32.3 pg (27.0-34.8); MEAN CORPUSCULAR HGB CONC 31.6 g/dL (32.4-35.8); MEAN PLATELET VOLUME 8.6 fL (7.4-10.4); PLATELET COUNT 311 x10^3/uL (130-400); RED BLOOD COUNT 3.02 x10^6/uL (3.82-5.3); RED CELL DISTRIBUTION WIDTH 20.6 % (9.6-15.2)
[2020-07-05 05:46] LABS: MD YES
[2020-07-05 05:47] LABS: EOS#(MANUAL) 0.13 x10^3/uL (0.0-0.4); EOS% (MANUAL) 1 % (1-7); LYMPH#(MANUAL) 1.13 x10^3/uL (1-3.4); LYMPHS% (MANUAL) 9 % (22-44); MONOS#(MANUAL) 0.13 x10^3/uL (0.3-2.7); MONOS% (MANUAL) 1 % (2-9); SEG#(MANUAL) 11.21 x10^3/uL (1.8-6.8); SEGS% (MANUAL) 89 % (42-75)
[2020-07-05 05:48] LABS: <PLATELET ESTIMATE> ADEQUATE; <PLT MORPHOLOGY> NORMAL PLT MORPH; ANISOCYTOSIS 1+; POLYCHROMASIA 1+
[2020-07-05] MEDS: RISPERIDONE 1 MG TABLET PO SCH ×2 (08:59→21:27)
[2020-07-05] MEDS: MULTIVITAMIN 1 TABLET PO SCH (08:59)
[2020-07-05] MEDS: SODIUM CHLORIDE FLUSH 10ML SYR IVF SCH ×2 (09:00→21:27)
[2020-07-05] MEDS: LISINOPRIL 10 MG TABLET PO SCH ×2 (09:00→21:26)
[2020-07-05] MEDS: ASPIRIN 81 MG TABLET CHEW PO SCH (09:00)
[2020-07-05] MEDS: CITALOPRAM 20 MG TABLET PO SCH (09:00)
[2020-07-05] MEDS: THIAMINE 100MG TABLET PO SCH ×2 (09:00→21:26)
[2020-07-05] MEDS: DEXMEDETOMIDINE 400 MCG in SODIUM CHLORIDE 0.9% 96 ML IV PRN ×3 (10:41→19:23)
[2020-07-05] MEDS: LORazepam 2 MG/ML, 1ML IVPush PRN (17:52)
[2020-07-05] MEDS: ATORVASTATIN 80 MG TABLET PO SCH (21:26)
[2020-07-05] MEDS: TRAZODONE 50MG TABLET PO SCH (21:27)
[2020-07-06] MEDS: VANCOMYCIN 50 MG/ML ORAL SUSP PO SCH ×4 (02:50→22:18)
[2020-07-06] MEDS: PANTOPRAZOLE 40 MG IV IVPush SCH ×2 (02:51→14:00)
[2020-07-06] MEDS: METOPROLOL TARTRATE 25 MG TAB PO SCH ×3 (02:51→18:08)
[2020-07-06] MEDS: ALBUTEROL SULFATE 2.5 MG/3 ML INLINE SCH ×6 (03:30→22:33)
[2020-07-06 05:00] VITALS: BP 142/76
[2020-07-06] MEDS: DEXMEDETOMIDINE 400 MCG in SODIUM CHLORIDE 0.9% 96 ML IV PRN ×3 (05:40→14:25)
[2020-07-06 06:03] LABS: CHLORIDE 110 mmol/L (98-107)
[2020-07-06 06:09] LABS: ANION GAP 5 mmol/L (5-15); CALCIUM 8.3 mg/dL (8.5-10.1); CREATININE 0.33 mg/dL (0.55-1.02)
[2020-07-06 06:25] LABS: MEAN CORPUSCULAR HEMOGLOBIN 32.5 pg (27.0-34.8); MEAN CORPUSCULAR HGB CONC 31.7 g/dL (32.4-35.8); MEAN CORPUSCULAR VOLUME 102.5 fL (80-100); MEAN PLATELET VOLUME 8.9 fL (7.4-10.4); PLATELET COUNT 271 x10^3/uL (130-400); RED BLOOD COUNT 2.99 x10^6/uL (3.82-5.3); RED CELL DISTRIBUTION WIDTH 20.3 % (9.6-15.2)
[2020-07-06 06:45] LABS: MD YES
[2020-07-06 06:48] LABS: BAND#(MANUAL) 0.14 x10^3/uL; BANDS%(MANUAL) 1 % (0-7); BASOS#(MANUAL) 0.14 x10^3/uL (0-0.1); BASOS% (MANUAL) 1 % (0-1); EOS#(MANUAL) 0.14 x10^3/uL (0.0-0.4); EOS% (MANUAL) 1 % (1-7); MONOS#(MANUAL) 0.56 x10^3/uL (0.3-2.7); MONOS% (MANUAL) 4 % (2-9); SEG#(MANUAL) 11.34 x10^3/uL (1.8-6.8); SEGS% (MANUAL) 81 % (42-75)
[2020-07-06 06:49] LABS: LYMPH#(MANUAL) 1.68 x10^3/uL (1-3.4); LYMPHS% (MANUAL) 12 % (22-44)
[2020-07-06 06:50] LABS: ANISOCYTOSIS 1+
[2020-07-06 06:51] LABS: <PLATELET ESTIMATE> ADEQUATE; <PLT MORPHOLOGY> NORMAL PLT MORPH; POLYCHROMASIA 1+
[2020-07-06] MEDS: LORazepam 2 MG/ML, 1ML IVPush PRN (07:29)
[2020-07-06] MEDS: THIAMINE 100MG TABLET PO SCH ×2 (08:34→22:16)
[2020-07-06] MEDS: CITALOPRAM 20 MG TABLET PO SCH (08:34)
[2020-07-06] MEDS: SODIUM CHLORIDE FLUSH 10ML SYR IVF SCH ×2 (08:34→21:00)
[2020-07-06] MEDS: MULTIVITAMIN 1 TABLET PO SCH (08:34)
[2020-07-06] MEDS: ASPIRIN 81 MG TABLET CHEW PO SCH (08:34)
[2020-07-06] MEDS: RISPERIDONE 1 MG TABLET PO SCH ×2 (08:34→22:16)
[2020-07-06] MEDS: LISINOPRIL 10 MG TABLET PO SCH ×2 (08:34→22:16)
[2020-07-06] MEDS: ACETAMINOPHEN 325 MG TABLET PO PRN ×2 (11:26→22:16)
[2020-07-06] MEDS: ZIPRASIDONE 20 MG INJ IM PRN ×2 (11:28→16:40)
[2020-07-06] MEDS: ERGOCALCIFEROL 50,000 UNIT CAPSULE PO SCH (14:24)
[2020-07-06] MEDS: TRAZODONE 50MG TABLET PO SCH (22:16)
[2020-07-06] MEDS: ATORVASTATIN 80 MG TABLET PO SCH (22:16)
[2020-07-07] MEDS: DEXMEDETOMIDINE 400 MCG in SODIUM CHLORIDE 0.9% 96 ML IV PRN ×2 (00:52→06:12)
[2020-07-07] MEDS: ALBUTEROL SULFATE 2.5 MG/3 ML INLINE SCH ×6 (02:24→22:30)
[2020-07-07] MEDS: VANCOMYCIN 50 MG/ML ORAL SUSP PO SCH ×4 (02:35→20:54)
[2020-07-07] MEDS: PANTOPRAZOLE 40 MG IV IVPush SCH ×2 (02:36→13:22)
[2020-07-07] MEDS: ZIPRASIDONE 20 MG INJ IM PRN ×2 (02:36→07:18)
[2020-07-07] MEDS: METOPROLOL TARTRATE 25 MG TAB PO SCH ×3 (02:36→17:40)
[2020-07-07 04:52] LABS: MEAN CORPUSCULAR HEMOGLOBIN 33.4 pg (27.0-34.8); MEAN CORPUSCULAR HGB CONC 32.2 g/dL (32.4-35.8); MEAN CORPUSCULAR VOLUME 103.7 fL (80-100); MEAN PLATELET VOLUME 8.4 fL (7.4-10.4); PLATELET COUNT 219 x10^3/uL (130-400); RED BLOOD COUNT 2.76 x10^6/uL (3.82-5.3); RED CELL DISTRIBUTION WIDTH 20.2 % (9.6-15.2)
[2020-07-07 05:01] LABS: CHLORIDE 110 mmol/L (98-107)
[2020-07-07 05:05] LABS: ANION GAP 5 mmol/L (5-15); CALCIUM 8.1 mg/dL (8.5-10.1); CREATININE 0.36 mg/dL (0.55-1.02)
[2020-07-07 05:15] VITALS: BP 140/64
[2020-07-07 05:40] LABS: BASOPHILS # (AUTO) 0.07 x10^3/uL (0-0.1); BASOPHILS % (AUTO) 1 % (0-1); EOSINOPHILS # (AUTO) 0.23 x10^3/uL (0-0.4); EOSINOPHILS % (AUTO) 2 % (1-7); LYMPHOCYTES # (AUTO) 0.73 x10^3/uL (1-3.4); LYMPHOCYTES % (AUTO) 6 % (22-44); MD SCAN; MONOCYTES # (AUTO) 0.39 x10^3/uL (0.2-0.8); MONOCYTES % (AUTO) 3 % (2-9); NEUTROPHILS # (AUTO) 10.18 x10^3/uL (1.8-6.8); NEUTROPHILS % (AUTO) 88 % (42-75)
[2020-07-07] MEDS ORDERED: POTASSIUM CHLORIDE 20 MEQ TAB.ER.PRT PO ONE (07:30)
[2020-07-07] MEDS: ACETAMINOPHEN 325 MG TABLET PO PRN ×2 (08:56→13:28)
[2020-07-07] MEDS: CITALOPRAM 20 MG TABLET PO SCH (08:56)
[2020-07-07] MEDS: MULTIVITAMIN 1 TABLET PO SCH (08:56)
[2020-07-07] MEDS: LISINOPRIL 10 MG TABLET PO SCH ×2 (08:56→20:53)
[2020-07-07] MEDS: THIAMINE 100MG TABLET PO SCH ×2 (08:56→20:54)
[2020-07-07] MEDS: ASPIRIN 81 MG TABLET CHEW PO SCH (08:57)
[2020-07-07] MEDS: SODIUM CHLORIDE FLUSH 10ML SYR IVF SCH ×2 (08:57→20:53)
[2020-07-07] MEDS: RISPERIDONE 1 MG TABLET PO SCH ×2 (08:58→20:54)
[2020-07-07 10:57] LABS: MICROSCOPIC INDICATED
[2020-07-07] MEDS: LABETALOL 5MG/ML, 20ML IVPush PRN (13:22)
[2020-07-07] MEDS: ONDANSETRON 2MG/ML, 2ML IVPush PRN (13:45)
[2020-07-07] MEDS ORDERED: OMNIPAQUE 350 MG/ML, 100ML BOTTLE ONE (15:16)
[2020-07-07] MEDS: MEROPENEM 1 GM in SODIUM CHLORIDE 0.9% 100 ML IV SCH (19:37)
[2020-07-07] MEDS: TRAZODONE 50MG TABLET PO SCH (20:53)
[2020-07-07] MEDS: ATORVASTATIN 80 MG TABLET PO SCH (20:53)
[2020-07-08] MEDS: PANTOPRAZOLE 40 MG IV IVPush SCH ×2 (01:33→14:13)
[2020-07-08] MEDS: METOPROLOL TARTRATE 25 MG TAB PO SCH ×4 (01:36→18:02)
[2020-07-08] MEDS: ALBUTEROL SULFATE 2.5 MG/3 ML INLINE SCH ×5 (02:40→22:15)
[2020-07-08] MEDS: VANCOMYCIN 50 MG/ML ORAL SUSP PO SCH ×4 (03:30→21:00)
[2020-07-08] MEDS: MEROPENEM 1 GM in SODIUM CHLORIDE 0.9% 100 ML IV SCH ×3 (03:30→20:59)
[2020-07-08 04:02] LABS: ANION GAP 5 mmol/L (5-15); CALCIUM 7.6 mg/dL (8.5-10.1); CHLORIDE 113 mmol/L (98-107); TRIGLYCERIDES 112 mg/dL (50-200)
[2020-07-08 04:36] LABS: MEAN CORPUSCULAR HEMOGLOBIN 32.4 pg (27.0-34.8); MEAN CORPUSCULAR HGB CONC 31.7 g/dL (32.4-35.8); MEAN PLATELET VOLUME 8.7 fL (7.4-10.4); PLATELET COUNT 208 x10^3/uL (130-400); RED CELL DISTRIBUTION WIDTH 19.7 % (9.6-15.2)
[2020-07-08 05:00] VITALS: BP 90/56
[2020-07-08 05:44] LABS: BASOPHILS # (AUTO) 0.04 x10^3/uL (0-0.1); BASOPHILS % (AUTO) 0 % (0-1); EOSINOPHILS # (AUTO) 0.16 x10^3/uL (0-0.4); EOSINOPHILS % (AUTO) 1 % (1-7); LYMPHOCYTES # (AUTO) 0.94 x10^3/uL (1-3.4); LYMPHOCYTES % (AUTO) 8 % (22-44); MD SCAN; MONOCYTES # (AUTO) 0.52 x10^3/uL (0.2-0.8); MONOCYTES % (AUTO) 5 % (2-9); NEUTROPHILS # (AUTO) 9.99 x10^3/uL (1.8-6.8); NEUTROPHILS % (AUTO) 86 % (42-75)
[2020-07-08] MEDS: ASPIRIN 81 MG TABLET CHEW PO SCH (07:53)
[2020-07-08] MEDS: LISINOPRIL 10 MG TABLET PO SCH ×2 (07:53→21:01)
[2020-07-08] MEDS: CITALOPRAM 20 MG TABLET PO SCH (07:54)
[2020-07-08] MEDS: THIAMINE 100MG TABLET PO SCH ×2 (07:54→21:01)
[2020-07-08] MEDS: MULTIVITAMIN 1 TABLET PO SCH (07:54)
[2020-07-08] MEDS: SODIUM CHLORIDE FLUSH 10ML SYR IVF SCH ×2 (07:54→21:00)
[2020-07-08] MEDS: RISPERIDONE 1 MG TABLET PO SCH ×2 (07:54→21:01)
[2020-07-08] MEDS: METOCLOPRAMIDE 5 MG/ML, 2ML IVPush SCH ×3 (09:43→21:00)
[2020-07-08] MEDS: CHOLESTYRAMINE LIGHT 4GM PACKET PO SCH ×2 (09:44→21:01)
[2020-07-08] MEDS: ZIPRASIDONE 20 MG INJ IM PRN ×2 (09:44→14:06)
[2020-07-08] MEDS: TRAZODONE 50MG TABLET PO SCH (21:00)
[2020-07-08] MEDS: ATORVASTATIN 80 MG TABLET PO SCH (21:01)
[2020-07-09] MEDS: ALBUTEROL SULFATE 2.5 MG/3 ML INLINE SCH ×6 (02:50→22:17)
[2020-07-09] MEDS: PANTOPRAZOLE 40 MG IV IVPush SCH ×2 (03:19→12:21)
[2020-07-09] MEDS: MEROPENEM 1 GM in SODIUM CHLORIDE 0.9% 100 ML IV SCH ×3 (03:20→20:26)
[2020-07-09] MEDS: ACETAMINOPHEN 325 MG TABLET PO PRN ×2 (03:20→20:27)
[2020-07-09] MEDS: VANCOMYCIN 50 MG/ML ORAL SUSP PO SCH ×4 (03:20→20:26)
[2020-07-09] MEDS: METOPROLOL TARTRATE 25 MG TAB PO SCH ×3 (03:20→18:43)
[2020-07-09] MEDS: METOCLOPRAMIDE 5 MG/ML, 2ML IVPush SCH ×4 (03:20→20:26)
[2020-07-09 05:00] VITALS: BP 122/68
[2020-07-09 06:57] LABS: MEAN CORPUSCULAR HEMOGLOBIN 33.9 pg (27.0-34.8); MEAN CORPUSCULAR HGB CONC 33.3 g/dL (32.4-35.8); MEAN CORPUSCULAR VOLUME 101.9 fL (80-100); MEAN PLATELET VOLUME 8.6 fL (7.4-10.4); PLATELET COUNT 212 x10^3/uL (130-400); RED BLOOD COUNT 2.52 x10^6/uL (3.82-5.3); RED CELL DISTRIBUTION WIDTH 18.8 % (9.6-15.2)
[2020-07-09 07:05] LABS: ANION GAP 6 mmol/L (5-15); CALCIUM 8.5 mg/dL (8.5-10.1); CHLORIDE 113 mmol/L (98-107)
[2020-07-09 07:49] LABS: BASOPHILS # (AUTO) 0.24 x10^3/uL (0-0.1); BASOPHILS % (AUTO) 2 % (0-1); EOSINOPHILS # (AUTO) 0.24 x10^3/uL (0-0.4); EOSINOPHILS % (AUTO) 2 % (1-7); LYMPHOCYTES # (AUTO) 0.69 x10^3/uL (1-3.4); LYMPHOCYTES % (AUTO) 7 % (22-44); MD SCAN; MONOCYTES # (AUTO) 0.57 x10^3/uL (0.2-0.8); MONOCYTES % (AUTO) 6 % (2-9); NEUTROPHILS # (AUTO) 8.55 x10^3/uL (1.8-6.8); NEUTROPHILS % (AUTO) 83 % (42-75)
[2020-07-09] MEDS ORDERED: RISPERIDONE 1 MG TABLET ONE (09:08)
[2020-07-09] MEDS: CITALOPRAM 20 MG TABLET PO SCH (09:13)
[2020-07-09] MEDS: POTASSIUM CHLORIDE 20 MEQ TAB.ER.PRT PO SCH ×2 (09:13→16:04)
[2020-07-09] MEDS: CHOLESTYRAMINE LIGHT 4GM PACKET PO SCH ×2 (09:13→20:28)
[2020-07-09] MEDS: THIAMINE 100MG TABLET PO SCH ×2 (09:13→20:27)
[2020-07-09] MEDS: ASPIRIN 81 MG TABLET CHEW PO SCH (09:13)
[2020-07-09] MEDS: RISPERIDONE 2 MG TABLET PO SCH ×2 (09:14→20:26)
[2020-07-09] MEDS: LISINOPRIL 10 MG TABLET PO SCH ×2 (09:14→20:27)
[2020-07-09] MEDS: MULTIVITAMIN 1 TABLET PO SCH (09:15)
[2020-07-09] MEDS: ZIPRASIDONE 20 MG INJ IM PRN (09:15)
[2020-07-09] MEDS: SODIUM CHLORIDE FLUSH 10ML SYR IVF SCH ×2 (09:16→20:27)
[2020-07-09] MEDS: FLUCONAZOLE 200 MG/100 ML 100 ML IV SCH (10:38)
[2020-07-09] MEDS: LABETALOL 5MG/ML, 20ML IVPush PRN (12:21)
[2020-07-09] MEDS: ATORVASTATIN 80 MG TABLET PO SCH (20:26)
[2020-07-09] MEDS: TRAZODONE 50MG TABLET PO SCH (20:27)
[2020-07-10] MEDS: ALBUTEROL SULFATE 2.5 MG/3 ML INLINE SCH ×2 (02:21→06:20)
[2020-07-10] MEDS: METOPROLOL TARTRATE 25 MG TAB PO SCH ×2 (02:30→09:38)
[2020-07-10] MEDS: PANTOPRAZOLE 40 MG IV IVPush SCH ×2 (03:59→13:30)
[2020-07-10 04:00] VITALS: BP 151/74
[2020-07-10] MEDS: MEROPENEM 1 GM in SODIUM CHLORIDE 0.9% 100 ML IV SCH ×3 (04:02→20:21)
[2020-07-10] MEDS: METOCLOPRAMIDE 5 MG/ML, 2ML IVPush SCH ×4 (04:04→22:27)
[2020-07-10] MEDS: VANCOMYCIN 50 MG/ML ORAL SUSP PO SCH ×4 (04:04→20:28)
[2020-07-10] MEDS: ACETAMINOPHEN 325 MG TABLET PO PRN ×2 (04:05→13:31)
[2020-07-10 04:45] LABS: MEAN CORPUSCULAR HGB CONC 31.9 g/dL (32.4-35.8); MEAN CORPUSCULAR VOLUME 100.1 fL (80-100); MEAN PLATELET VOLUME 8.2 fL (7.4-10.4); PLATELET COUNT 208 x10^3/uL (130-400); RED BLOOD COUNT 2.44 x10^6/uL (3.82-5.3); RED CELL DISTRIBUTION WIDTH 18.5 % (9.6-15.2)
[2020-07-10 05:00] LABS: BASOPHILS # (AUTO) 0.28 x10^3/uL (0-0.1); BASOPHILS % (AUTO) 4 % (0-1); EOSINOPHILS # (AUTO) 0.15 x10^3/uL (0-0.4); EOSINOPHILS % (AUTO) 2 % (1-7); LYMPHOCYTES # (AUTO) 0.65 x10^3/uL (1-3.4); LYMPHOCYTES % (AUTO) 9 % (22-44); MD SCAN; MONOCYTES # (AUTO) 0.42 x10^3/uL (0.2-0.8); MONOCYTES % (AUTO) 6 % (2-9); NEUTROPHILS # (AUTO) 5.61 x10^3/uL (1.8-6.8); NEUTROPHILS % (AUTO) 79 % (42-75)
[2020-07-10 05:52] LABS: ANION GAP 5 mmol/L (5-15); CALCIUM 8.1 mg/dL (8.5-10.1); CHLORIDE 112 mmol/L (98-107); CREATININE 0.38 mg/dL (0.55-1.02)
[2020-07-10] MEDS: MULTIVITAMIN 1 TABLET PO SCH (08:02)
[2020-07-10] MEDS: CHOLESTYRAMINE LIGHT 4GM PACKET PO SCH ×2 (08:02→22:27)
[2020-07-10] MEDS: LISINOPRIL 10 MG TABLET PO SCH (08:02)
[2020-07-10] MEDS: ASPIRIN 81 MG TABLET CHEW PO SCH (08:02)
[2020-07-10] MEDS: THIAMINE 100MG TABLET PO SCH ×2 (08:02→20:27)
[2020-07-10] MEDS: FLUCONAZOLE 200 MG/100 ML 100 ML IV SCH (08:03)
[2020-07-10] MEDS: RISPERIDONE 2 MG TABLET PO SCH ×2 (08:04→20:27)
[2020-07-10] MEDS: CITALOPRAM 20 MG TABLET PO SCH (08:05)
[2020-07-10] MEDS: SODIUM CHLORIDE FLUSH 10ML SYR IVF SCH ×2 (08:06→20:23)
[2020-07-10] MEDS ORDERED: ALBUTEROL SULFATE 2.5 MG/3 ML INLINE SCH (10:30)
[2020-07-10] MEDS: LABETALOL 5MG/ML, 20ML IVPush PRN ×2 (11:34→17:49)
[2020-07-10] MEDS: ZIPRASIDONE 20 MG INJ IM PRN (13:30)
[2020-07-10] MEDS ORDERED: ENALAPRILAT 1.25 MG/ML, 1ML IV PRN (13:30)
[2020-07-10] MEDS: LISINOPRIL 20 MG TABLET PO SCH (20:26)
[2020-07-10] MEDS: METOPROLOL TARTRATE 50 MG TAB PO SCH (20:26)
[2020-07-10] MEDS: TRAZODONE 50MG TABLET PO SCH (20:26)
[2020-07-10] MEDS: ATORVASTATIN 80 MG TABLET PO SCH (20:27)
[2020-07-11] MEDS: PANTOPRAZOLE 40 MG IV IVPush SCH ×2 (01:44→13:57)
[2020-07-11] MEDS: LABETALOL 5MG/ML, 20ML IVPush PRN ×2 (02:05→05:45)
[2020-07-11] MEDS ORDERED: ENALAPRILAT 1.25 MG/ML, 2ML ONE (04:03)
[2020-07-11] MEDS: METOCLOPRAMIDE 5 MG/ML, 2ML IVPush SCH ×2 (04:17→10:09)
[2020-07-11] MEDS: VANCOMYCIN 50 MG/ML ORAL SUSP PO SCH ×4 (04:17→20:04)
[2020-07-11] MEDS: MEROPENEM 1 GM in SODIUM CHLORIDE 0.9% 100 ML IV SCH ×2 (04:18→12:37)
[2020-07-11 05:00] VITALS: BP 164/84
[2020-07-11 05:09] LABS: ANION GAP 3 mmol/L (5-15); CHLORIDE 109 mmol/L (98-107)
[2020-07-11 05:10] LABS: CREATININE 0.31 mg/dL (0.55-1.02)
[2020-07-11 06:25] LABS: MEAN CORPUSCULAR HEMOGLOBIN 32.7 pg (27.0-34.8); MEAN CORPUSCULAR HGB CONC 32.9 g/dL (32.4-35.8); MEAN CORPUSCULAR VOLUME 99.3 fL (80-100); MEAN PLATELET VOLUME 8.6 fL (7.4-10.4); PLATELET COUNT 222 x10^3/uL (130-400); RED BLOOD COUNT 2.98 x10^6/uL (3.82-5.3)
[2020-07-11 06:26] LABS: RED CELL DISTRIBUTION WIDTH 18.7 % (9.6-15.2)
[2020-07-11 06:28] LABS: BASOPHILS # (AUTO) 0.15 x10^3/uL (0-0.1); BASOPHILS % (AUTO) 2 % (0-1); EOSINOPHILS # (AUTO) 0.31 x10^3/uL (0-0.4); EOSINOPHILS % (AUTO) 4 % (1-7); LYMPHOCYTES # (AUTO) 0.99 x10^3/uL (1-3.4); LYMPHOCYTES % (AUTO) 11 % (22-44); MD SCAN; MONOCYTES # (AUTO) 0.61 x10^3/uL (0.2-0.8); MONOCYTES % (AUTO) 7 % (2-9); NEUTROPHILS # (AUTO) 6.72 x10^3/uL (1.8-6.8); NEUTROPHILS % (AUTO) 76 % (42-75)
[2020-07-11] MEDS: POTASSIUM CHLORIDE 10% 40 MEQ/30 ML UDC PO SCH ×3 (10:05→20:04)
[2020-07-11] MEDS: METOPROLOL TARTRATE 50 MG TAB PO SCH ×2 (10:05→20:04)
[2020-07-11] MEDS: LISINOPRIL 20 MG TABLET PO SCH ×2 (10:06→20:03)
[2020-07-11] MEDS: ASPIRIN 81 MG TABLET CHEW PO SCH (10:06)
[2020-07-11] MEDS: CITALOPRAM 20 MG TABLET PO SCH (10:06)
[2020-07-11] MEDS: MULTIVITAMIN 1 TABLET PO SCH (10:06)
[2020-07-11] MEDS: THIAMINE 100MG TABLET PO SCH ×2 (10:06→20:03)
[2020-07-11] MEDS: RISPERIDONE 2 MG TABLET PO SCH ×2 (10:07→20:03)
[2020-07-11] MEDS: FLUCONAZOLE 200 MG/100 ML 100 ML IV SCH (10:07)
[2020-07-11] MEDS: CHOLESTYRAMINE LIGHT 4GM PACKET PO SCH ×2 (10:08→19:58)
[2020-07-11] MEDS: SODIUM CHLORIDE FLUSH 10ML SYR IVF SCH ×2 (10:20→20:03)
[2020-07-11] MEDS ORDERED: LABETALOL 5MG/ML, 20ML IVPush PRN (11:30)
[2020-07-11] MEDS: TRAZODONE 50MG TABLET PO SCH (20:03)
[2020-07-11] MEDS: ATORVASTATIN 80 MG TABLET PO SCH (20:03)
[2020-07-12] MEDS: PANTOPRAZOLE 40 MG IV IVPush SCH ×2 (01:21→13:03)
[2020-07-12] MEDS: VANCOMYCIN 50 MG/ML ORAL SUSP PO SCH ×4 (03:37→21:38)
[2020-07-12 05:19] LABS: BASOPHILS # (AUTO) 0.05 x10^3/uL (0-0.1); BASOPHILS % (AUTO) 1 % (0-1); EOSINOPHILS # (AUTO) 0.44 x10^3/uL (0-0.4); EOSINOPHILS % (AUTO) 6 % (1-7); LYMPHOCYTES # (AUTO) 1.23 x10^3/uL (1-3.4); LYMPHOCYTES % (AUTO) 16 % (22-44); MD NO; MEAN CORPUSCULAR HGB CONC 32.9 g/dL (32.4-35.8); MEAN CORPUSCULAR VOLUME 100.2 fL (80-100); MONOCYTES # (AUTO) 0.47 x10^3/uL (0.2-0.8); MONOCYTES % (AUTO) 6 % (2-9); NEUTROPHILS # (AUTO) 5.56 x10^3/uL (1.8-6.8); NEUTROPHILS % (AUTO) 72 % (42-75); PLATELET COUNT 241 x10^3/uL (130-400); RED BLOOD COUNT 2.77 x10^6/uL (3.82-5.3); RED CELL DISTRIBUTION WIDTH 19.2 % (9.6-15.2)
[2020-07-12 05:33] LABS: ANION GAP 5 mmol/L (5-15); CALCIUM 8.6 mg/dL (8.5-10.1); CHLORIDE 112 mmol/L (98-107)
[2020-07-12 05:35] LABS: CREATININE 0.25 mg/dL (0.55-1.02)
[2020-07-12] MEDS: CHOLESTYRAMINE LIGHT 4GM PACKET PO SCH ×2 (09:00→21:10)
[2020-07-12] MEDS: SODIUM CHLORIDE FLUSH 10ML SYR IVF SCH ×2 (09:00→21:12)
[2020-07-12] MEDS: ASPIRIN 81 MG TABLET CHEW PO SCH (09:57)
[2020-07-12] MEDS: RISPERIDONE 2 MG TABLET PO SCH (09:57)
[2020-07-12] MEDS: THIAMINE 100MG TABLET PO SCH ×2 (09:57→21:12)
[2020-07-12] MEDS: MULTIVITAMIN 1 TABLET PO SCH (09:57)
[2020-07-12] MEDS: CITALOPRAM 20 MG TABLET PO SCH (09:57)
[2020-07-12] MEDS: LISINOPRIL 20 MG TABLET PO SCH ×2 (09:58→21:11)
[2020-07-12] MEDS: METOPROLOL TARTRATE 50 MG TAB PO SCH ×2 (09:58→21:10)
[2020-07-12] MEDS ORDERED: ENOXAPARIN 40 MG/0.4 ML SQ SCH (10:30)
[2020-07-12] MEDS: ENOXAPARIN 40 MG/0.4 ML SQ SCH (13:03)
[2020-07-12] MEDS: ACETAMINOPHEN 325 MG TABLET PO PRN ×2 (16:33→21:37)
[2020-07-12] MEDS: ATORVASTATIN 80 MG TABLET PO SCH (21:11)
[2020-07-12] MEDS: TRAZODONE 50MG TABLET PO SCH (21:11)
[2020-07-12] MEDS: RISPERIDONE 0.5 MG TABLET PO SCH (21:12)
[2020-07-13] MEDS: VANCOMYCIN 50 MG/ML ORAL SUSP PO SCH ×4 (02:21→21:13)
[2020-07-13] MEDS: PANTOPRAZOLE 40 MG IV IVPush SCH ×2 (02:21→14:26)
[2020-07-13 04:00] VITALS: BP 117/56
[2020-07-13 05:15] LABS: ANION GAP 6 mmol/L (5-15); CALCIUM 8.8 mg/dL (8.5-10.1); CHLORIDE 113 mmol/L (98-107); CREATININE 0.33 mg/dL (0.55-1.02)
[2020-07-13 05:17] LABS: BASOPHILS # (AUTO) 0.07 x10^3/uL (0-0.1); BASOPHILS % (AUTO) 1 % (0-1); EOSINOPHILS # (AUTO) 0.57 x10^3/uL (0-0.4); EOSINOPHILS % (AUTO) 8 % (1-7); LYMPHOCYTES # (AUTO) 1.19 x10^3/uL (1-3.4); LYMPHOCYTES % (AUTO) 16 % (22-44); MD NO; MEAN CORPUSCULAR HEMOGLOBIN 33.4 pg (27.0-34.8); MEAN CORPUSCULAR HGB CONC 33.2 g/dL (32.4-35.8); MEAN CORPUSCULAR VOLUME 100.7 fL (80-100); MEAN PLATELET VOLUME 9.1 fL (7.4-10.4); MONOCYTES # (AUTO) 0.52 x10^3/uL (0.2-0.8); MONOCYTES % (AUTO) 7 % (2-9); NEUTROPHILS # (AUTO) 5.26 x10^3/uL (1.8-6.8); NEUTROPHILS % (AUTO) 69 % (42-75); PLATELET COUNT 255 x10^3/uL (130-400); RED BLOOD COUNT 2.84 x10^6/uL (3.82-5.3); RED CELL DISTRIBUTION WIDTH 18.5 % (9.6-15.2)
[2020-07-13 08:00] VITALS: BP 118/56
[2020-07-13] MEDS ORDERED: LISINOPRIL 20 MG TABLET PO SCH (09:00)
[2020-07-13] MEDS: SODIUM CHLORIDE FLUSH 10ML SYR IVF SCH ×2 (09:00→21:12)
[2020-07-13] MEDS: CHOLESTYRAMINE LIGHT 4GM PACKET PO SCH ×2 (09:29→21:12)
[2020-07-13] MEDS: CITALOPRAM 20 MG TABLET PO SCH (09:29)
[2020-07-13] MEDS: METOPROLOL TARTRATE 50 MG TAB PO SCH ×2 (09:29→21:12)
[2020-07-13] MEDS: THIAMINE 100MG TABLET PO SCH ×2 (09:30→21:13)
[2020-07-13] MEDS: RISPERIDONE 0.5 MG TABLET PO SCH ×2 (09:30→21:14)
[2020-07-13] MEDS: ASPIRIN 81 MG TABLET CHEW PO SCH (09:30)
[2020-07-13] MEDS: MULTIVITAMIN 1 TABLET PO SCH (09:30)
[2020-07-13] MEDS: ACETAMINOPHEN 325 MG TABLET PO PRN (09:32)
[2020-07-13 12:00] VITALS: BP 107/50
[2020-07-13] MEDS: ENOXAPARIN 40 MG/0.4 ML SQ SCH (14:25)
[2020-07-13] MEDS: ERGOCALCIFEROL 50,000 UNIT CAPSULE PO SCH (14:26)
[2020-07-13 16:00] VITALS: BP 140/71
[2020-07-13 20:58] VITALS: BP 146/75
[2020-07-13] MEDS: ATORVASTATIN 80 MG TABLET PO SCH (21:12)
[2020-07-13] MEDS: TRAZODONE 50MG TABLET PO SCH (21:12)
[2020-07-14 00:39] VITALS: BP 142/80
[2020-07-14] MEDS: ACETAMINOPHEN 325 MG TABLET PO PRN ×2 (01:00→13:25)
[2020-07-14] MEDS: PANTOPRAZOLE 40 MG IV IVPush SCH ×2 (04:02→17:12)
[2020-07-14 06:20] LABS: ANION GAP 5 mmol/L (5-15); CHLORIDE 111 mmol/L (98-107)
[2020-07-14 06:21] LABS: CREATININE 0.34 mg/dL (0.55-1.02)
[2020-07-14 06:26] LABS: BASOPHILS # (AUTO) 0.02 x10^3/uL (0-0.1); BASOPHILS % (AUTO) 0 % (0-1); EOSINOPHILS # (AUTO) 0.57 x10^3/uL (0-0.4); EOSINOPHILS % (AUTO) 8 % (1-7); LYMPHOCYTES # (AUTO) 1.38 x10^3/uL (1-3.4); LYMPHOCYTES % (AUTO) 19 % (22-44); MD NO; MEAN CORPUSCULAR HEMOGLOBIN 32.8 pg (27.0-34.8); MEAN CORPUSCULAR HGB CONC 32.6 g/dL (32.4-35.8); MEAN CORPUSCULAR VOLUME 100.6 fL (80-100); MEAN PLATELET VOLUME 8.1 fL (7.4-10.4); MONOCYTES # (AUTO) 0.47 x10^3/uL (0.2-0.8); MONOCYTES % (AUTO) 7 % (2-9); NEUTROPHILS # (AUTO) 4.74 x10^3/uL (1.8-6.8); NEUTROPHILS % (AUTO) 66 % (42-75); PLATELET COUNT 319 x10^3/uL (130-400); RED CELL DISTRIBUTION WIDTH 18.7 % (9.6-15.2)
[2020-07-14 08:07] VITALS: BP 152/72
[2020-07-14] MEDS: SODIUM CHLORIDE FLUSH 10ML SYR IVF SCH ×2 (09:52→21:16)
[2020-07-14] MEDS: CHOLESTYRAMINE LIGHT 4GM PACKET PO SCH ×2 (09:52→21:14)
[2020-07-14] MEDS: RISPERIDONE 0.5 MG TABLET PO SCH ×2 (10:42→21:15)
[2020-07-14] MEDS: THIAMINE 100MG TABLET PO SCH ×2 (10:43→21:14)
[2020-07-14] MEDS: CITALOPRAM 20 MG TABLET PO SCH (10:43)
[2020-07-14] MEDS: ASPIRIN 81 MG TABLET CHEW PO SCH (10:44)
[2020-07-14] MEDS: MULTIVITAMIN 1 TABLET PO SCH (10:44)
[2020-07-14] MEDS: METOPROLOL TARTRATE 50 MG TAB PO SCH ×2 (10:44→21:15)
[2020-07-14] MEDS: ENOXAPARIN 40 MG/0.4 ML SQ SCH (13:26)
[2020-07-14 13:30] VITALS: BP 152/82
[2020-07-14 20:54] VITALS: BP 144/77
[2020-07-14] MEDS: TRAZODONE 50MG TABLET PO SCH (21:14)
[2020-07-14] MEDS: ATORVASTATIN 80 MG TABLET PO SCH (21:15)
[2020-07-15 00:30] VITALS: BP 109/67
[2020-07-15] MEDS: PANTOPRAZOLE 40 MG IV IVPush SCH ×2 (04:16→16:09)
[2020-07-15 08:14] VITALS: BP 158/83
[2020-07-15] MEDS: CHOLESTYRAMINE LIGHT 4GM PACKET PO SCH ×2 (09:38→20:35)
[2020-07-15] MEDS: RISPERIDONE 0.5 MG TABLET PO SCH ×2 (10:28→20:36)
[2020-07-15] MEDS: CITALOPRAM 20 MG TABLET PO SCH (10:28)
[2020-07-15] MEDS: MULTIVITAMIN 1 TABLET PO SCH (10:28)
[2020-07-15] MEDS: THIAMINE 100MG TABLET PO SCH ×2 (10:28→20:36)
[2020-07-15] MEDS: ASPIRIN 81 MG TABLET CHEW PO SCH (10:28)
[2020-07-15] MEDS: METOPROLOL TARTRATE 50 MG TAB PO SCH ×2 (10:28→20:36)
[2020-07-15] MEDS: ENOXAPARIN 40 MG/0.4 ML SQ SCH (12:57)
[2020-07-15 12:58] VITALS: BP 91/57
[2020-07-15] MEDS: ACETAMINOPHEN 325 MG TABLET PO PRN (16:09)
[2020-07-15] MEDS: SODIUM CHLORIDE FLUSH 10ML SYR IVF SCH ×2 (16:15→20:35)
[2020-07-15 20:24] VITALS: BP 128/76
[2020-07-15] MEDS: ATORVASTATIN 80 MG TABLET PO SCH (20:35)
[2020-07-15] MEDS: TRAZODONE 50MG TABLET PO SCH (20:35)
[2020-07-16 01:11] VITALS: BP 112/65
[2020-07-16] MEDS: PANTOPRAZOLE 40 MG IV IVPush SCH (04:11)
[2020-07-16 05:47] LABS: BASOPHILS # (AUTO) 0.03 x10^3/uL (0-0.1); BASOPHILS % (AUTO) 0 % (0-1); EOSINOPHILS # (AUTO) 0.47 x10^3/uL (0-0.4); EOSINOPHILS % (AUTO) 6 % (1-7); LYMPHOCYTES # (AUTO) 1.68 x10^3/uL (1-3.4); LYMPHOCYTES % (AUTO) 20 % (22-44); MD NO; MEAN CORPUSCULAR HEMOGLOBIN 32.7 pg (27.0-34.8); MEAN CORPUSCULAR HGB CONC 32.9 g/dL (32.4-35.8); MEAN CORPUSCULAR VOLUME 99.2 fL (80-100); MEAN PLATELET VOLUME 8.4 fL (7.4-10.4); MONOCYTES # (AUTO) 0.51 x10^3/uL (0.2-0.8); MONOCYTES % (AUTO) 6 % (2-9); NEUTROPHILS # (AUTO) 5.84 x10^3/uL (1.8-6.8); NEUTROPHILS % (AUTO) 68 % (42-75); PLATELET COUNT 444 x10^3/uL (130-400); RED BLOOD COUNT 3.24 x10^6/uL (3.82-5.3); RED CELL DISTRIBUTION WIDTH 18.9 % (9.6-15.2)
[2020-07-16 05:51] LABS: ANION GAP 5 mmol/L (5-15); CALCIUM 9.1 mg/dL (8.5-10.1); CHLORIDE 111 mmol/L (98-107)
[2020-07-16 05:52] LABS: CREATININE 0.38 mg/dL (0.55-1.02)
[2020-07-16 07:48] VITALS: BP 131/73
[2020-07-16] MEDS: CHOLESTYRAMINE LIGHT 4GM PACKET PO SCH ×2 (08:46→21:45)
[2020-07-16] MEDS: ASPIRIN 81 MG TABLET CHEW PO SCH (10:22)
[2020-07-16] MEDS: THIAMINE 100MG TABLET PO SCH ×2 (10:23→21:48)
[2020-07-16] MEDS: METOPROLOL TARTRATE 50 MG TAB PO SCH ×2 (10:23→21:46)
[2020-07-16] MEDS: MULTIVITAMIN 1 TABLET PO SCH (10:24)
[2020-07-16] MEDS: ACETAMINOPHEN 325 MG TABLET PO PRN (10:24)
[2020-07-16] MEDS: CITALOPRAM 20 MG TABLET PO SCH (10:25)
[2020-07-16] MEDS: RISPERIDONE 0.5 MG TABLET PO SCH ×2 (10:25→21:48)
--- NOTE | 2020-07-16 14:06 | NUR ---
REC: [id number] Addendum: 07/16/20 at 1406 by Shannan ARCEO Amended: Links added.
[2020-07-16] MEDS: SODIUM CHLORIDE FLUSH 10ML SYR IVF SCH ×2 (14:27→21:49)
[2020-07-16] MEDS: ENOXAPARIN 40 MG/0.4 ML SQ SCH (14:28)
[2020-07-16 14:30] VITALS: BP 110/68
[2020-07-16 19:43] VITALS: BP 125/72
[2020-07-16] MEDS: TRAZODONE 50MG TABLET PO SCH (21:46)
[2020-07-16] MEDS: ATORVASTATIN 80 MG TABLET PO SCH (21:48)
[2020-07-17] VITALS (7 sets, daily range): BP systolic 77–124; BP diastolic 45–76
[2020-07-17 06:42] LABS: BASOPHILS # (AUTO) 0.03 x10^3/uL (0-0.1); BASOPHILS % (AUTO) 0 % (0-1); EOSINOPHILS # (AUTO) 0.57 x10^3/uL (0-0.4); EOSINOPHILS % (AUTO) 6 % (1-7); LYMPHOCYTES # (AUTO) 1.87 x10^3/uL (1-3.4); LYMPHOCYTES % (AUTO) 19 % (22-44); MD NO; MEAN CORPUSCULAR HEMOGLOBIN 32.3 pg (27.0-34.8); MEAN CORPUSCULAR HGB CONC 32.9 g/dL (32.4-35.8); MEAN CORPUSCULAR VOLUME 98.2 fL (80-100); MEAN PLATELET VOLUME 8.1 fL (7.4-10.4); MONOCYTES # (AUTO) 0.62 x10^3/uL (0.2-0.8); MONOCYTES % (AUTO) 6 % (2-9); NEUTROPHILS # (AUTO) 6.52 x10^3/uL (1.8-6.8); NEUTROPHILS % (AUTO) 68 % (42-75); PLATELET COUNT 507 x10^3/uL (130-400); RED BLOOD COUNT 3.28 x10^6/uL (3.82-5.3); RED CELL DISTRIBUTION WIDTH 19.9 % (9.6-15.2)
[2020-07-17 06:55] LABS: CHLORIDE 109 mmol/L (98-107)
[2020-07-17 06:59] LABS: ALBUMIN 2.2 g/dL (3.4-5.0); ANION GAP 6 mmol/L (5-15); CALCIUM 9.5 mg/dL (8.5-10.1); CREATININE 0.37 mg/dL (0.55-1.02)
[2020-07-17] MEDS: METOPROLOL TARTRATE 50 MG TAB PO SCH ×2 (09:00→22:53)
[2020-07-17] MEDS: CHOLESTYRAMINE LIGHT 4GM PACKET PO SCH ×2 (09:00→22:54)
[2020-07-17] MEDS: MULTIVITAMIN 1 TABLET PO SCH (10:02)
[2020-07-17] MEDS: ASPIRIN 81 MG TABLET CHEW PO SCH (10:02)
[2020-07-17] MEDS: RISPERIDONE 0.5 MG TABLET PO SCH ×2 (10:02→22:53)
[2020-07-17] MEDS: THIAMINE 100MG TABLET PO SCH ×2 (10:02→22:53)
[2020-07-17] MEDS: CITALOPRAM 20 MG TABLET PO SCH (10:02)
[2020-07-17] MEDS: SODIUM CHLORIDE FLUSH 10ML SYR IVF SCH ×2 (10:03→22:54)
[2020-07-17] MEDS: ENOXAPARIN 40 MG/0.4 ML SQ SCH (13:00)
[2020-07-17] MEDS ORDERED: ALBUTEROL INH PRN (17:30)
[2020-07-17] MEDS: ATORVASTATIN 80 MG TABLET PO SCH (22:53)
[2020-07-17] MEDS: ACETAMINOPHEN 325 MG TABLET PO PRN (22:53)
[2020-07-17] MEDS: TRAZODONE 50MG TABLET PO SCH (22:53)
[2020-07-18] VITALS (7 sets, daily range): BP systolic 87–131; BP diastolic 51–78
[2020-07-18] MEDS ORDERED: SODIUM CHLORIDE 0.9% 1,000ML IVBOLUS ONE
[2020-07-18] MEDS: CHOLESTYRAMINE LIGHT 4GM PACKET PO SCH ×2 (09:00→21:02)
[2020-07-18] MEDS: SODIUM CHLORIDE FLUSH 10ML SYR IVF SCH ×2 (09:00→21:06)
[2020-07-18] MEDS: MULTIVITAMIN 1 TABLET PO SCH (10:57)
[2020-07-18] MEDS: ACETAMINOPHEN 325 MG TABLET PO PRN ×2 (10:57→21:01)
[2020-07-18] MEDS: ASPIRIN 81 MG TABLET CHEW PO SCH (10:57)
[2020-07-18] MEDS: THIAMINE 100MG TABLET PO SCH ×2 (10:57→21:02)
[2020-07-18] MEDS: RISPERIDONE 0.5 MG TABLET PO SCH ×2 (10:57→21:01)
[2020-07-18] MEDS: CITALOPRAM 20 MG TABLET PO SCH (10:57)
[2020-07-18] MEDS ORDERED: METOPROLOL TARTRATE 50 MG TAB PO ONE (11:00)
[2020-07-18] MEDS: ENOXAPARIN 40 MG/0.4 ML SQ SCH (13:00)
[2020-07-18] MEDS: METOPROLOL TARTRATE 50 MG TAB PO SCH (21:02)
[2020-07-18] MEDS: ATORVASTATIN 80 MG TABLET PO SCH (21:02)
[2020-07-18] MEDS: TRAZODONE 50MG TABLET PO SCH (21:06)
[2020-07-19] MEDS: ALBUTEROL HFA 90 MCG/SPRAY INH PRN ×2 (00:40→20:21)
[2020-07-19] MEDS: BENZONATATE 100 MG CAPSULE PO PRN ×3 (01:29→20:20)
[2020-07-19 01:30] VITALS: BP 119/73
[2020-07-19] MEDS ORDERED: TRAZODONE 50MG TABLET PO ONE (01:30)
[2020-07-19 06:19] VITALS: BP 109/70
[2020-07-19] MEDS: SODIUM CHLORIDE FLUSH 10ML SYR IVF SCH ×2 (09:00→20:21)
[2020-07-19] MEDS: RISPERIDONE 0.5 MG TABLET PO SCH ×2 (09:06→20:20)
[2020-07-19] MEDS: THIAMINE 100MG TABLET PO SCH ×2 (09:07→20:20)
[2020-07-19] MEDS: CHOLESTYRAMINE LIGHT 4GM PACKET PO SCH ×2 (09:07→20:21)
[2020-07-19] MEDS: CITALOPRAM 20 MG TABLET PO SCH (09:07)
[2020-07-19] MEDS: MULTIVITAMIN 1 TABLET PO SCH (09:07)
[2020-07-19] MEDS: ASPIRIN 81 MG TABLET CHEW PO SCH (09:07)
[2020-07-19] MEDS: METOPROLOL TARTRATE 50 MG TAB PO SCH ×2 (09:07→20:20)
[2020-07-19 12:50] VITALS: BP 129/79
[2020-07-19] MEDS: ENOXAPARIN 40 MG/0.4 ML SQ SCH (13:18)
[2020-07-19 18:56] VITALS: BP 121/72
[2020-07-19 19:33] VITALS: BP 125/78
[2020-07-19] MEDS: ATORVASTATIN 80 MG TABLET PO SCH (20:19)
[2020-07-19] MEDS: ACETAMINOPHEN 325 MG TABLET PO PRN (20:20)
[2020-07-19] MEDS: TRAZODONE 50MG TABLET PO SCH (20:20)
[2020-07-20 02:03] VITALS: BP 115/61
[2020-07-20 06:40] LABS: BASOPHILS # (AUTO) 0.03 x10^3/uL (0-0.1); BASOPHILS % (AUTO) 0 % (0-1); EOSINOPHILS # (AUTO) 0.21 x10^3/uL (0-0.4); EOSINOPHILS % (AUTO) 3 % (1-7); LYMPHOCYTES # (AUTO) 1.64 x10^3/uL (1-3.4); LYMPHOCYTES % (AUTO) 20 % (22-44); MD NO; MEAN CORPUSCULAR HEMOGLOBIN 31.9 pg (27.0-34.8); MEAN CORPUSCULAR HGB CONC 31.9 g/dL (32.4-35.8); MEAN CORPUSCULAR VOLUME 99.8 fL (80-100); MEAN PLATELET VOLUME 8.1 fL (7.4-10.4); MONOCYTES # (AUTO) 0.56 x10^3/uL (0.2-0.8); MONOCYTES % (AUTO) 7 % (2-9); NEUTROPHILS # (AUTO) 5.68 x10^3/uL (1.8-6.8); NEUTROPHILS % (AUTO) 70 % (42-75); PLATELET COUNT 547 x10^3/uL (130-400); RED BLOOD COUNT 3.53 x10^6/uL (3.82-5.3); RED CELL DISTRIBUTION WIDTH 20.6 % (9.6-15.2)
[2020-07-20 06:51] LABS: ANION GAP 5 mmol/L (5-15); CHLORIDE 113 mmol/L (98-107); CREATININE 0.35 mg/dL (0.55-1.02)
[2020-07-20 08:07] VITALS: BP 148/80
[2020-07-20] MEDS: CHOLESTYRAMINE LIGHT 4GM PACKET PO SCH ×2 (08:44→21:39)
[2020-07-20] MEDS: ASPIRIN 81 MG TABLET CHEW PO SCH (08:44)
[2020-07-20] MEDS: RISPERIDONE 0.5 MG TABLET PO SCH ×2 (08:45→21:39)
[2020-07-20] MEDS: METOPROLOL TARTRATE 50 MG TAB PO SCH ×2 (08:45→21:39)
[2020-07-20] MEDS: MULTIVITAMIN 1 TABLET PO SCH (08:45)
[2020-07-20] MEDS: SODIUM CHLORIDE FLUSH 10ML SYR IVF SCH ×2 (08:45→21:39)
[2020-07-20] MEDS: THIAMINE 100MG TABLET PO SCH ×2 (08:45→21:38)
[2020-07-20] MEDS: CITALOPRAM 20 MG TABLET PO SCH (08:58)
[2020-07-20] MEDS: ACETAMINOPHEN 325 MG TABLET PO PRN ×2 (09:05→21:38)
[2020-07-20] MEDS: BENZONATATE 100 MG CAPSULE PO PRN ×2 (09:05→21:38)
[2020-07-20 13:15] VITALS: BP 102/62
[2020-07-20] MEDS: ERGOCALCIFEROL 50,000 UNIT CAPSULE PO SCH (14:08)
[2020-07-20] MEDS: ENOXAPARIN 40 MG/0.4 ML SQ SCH (14:09)
[2020-07-20 18:37] VITALS: BP 113/72
[2020-07-20 21:36] VITALS: BP 117/67
[2020-07-20] MEDS: TRAZODONE 50MG TABLET PO SCH (21:38)
[2020-07-20] MEDS: ATORVASTATIN 80 MG TABLET PO SCH (21:39)
[2020-07-21 00:13] VITALS: BP 108/63
[2020-07-21 08:07] VITALS: BP 152/78
[2020-07-21] MEDS: ASPIRIN 81 MG TABLET CHEW PO SCH (08:27)
[2020-07-21] MEDS: MULTIVITAMIN 1 TABLET PO SCH (08:28)
[2020-07-21] MEDS: RISPERIDONE 0.5 MG TABLET PO SCH (08:28)
[2020-07-21] MEDS: THIAMINE 100MG TABLET PO SCH ×2 (08:28→21:31)
[2020-07-21] MEDS: CITALOPRAM 20 MG TABLET PO SCH (08:29)
[2020-07-21 08:31] VITALS: BP 122/77
[2020-07-21] MEDS: METOPROLOL TARTRATE 50 MG TAB PO SCH ×2 (08:31→21:31)
[2020-07-21] MEDS: ACETAMINOPHEN 325 MG TABLET PO PRN ×2 (08:40→21:43)
[2020-07-21] MEDS: SODIUM CHLORIDE FLUSH 10ML SYR IVF SCH ×2 (08:41→21:31)
[2020-07-21] MEDS: CHOLESTYRAMINE LIGHT 4GM PACKET PO SCH (09:04)
[2020-07-21] MEDS: ENOXAPARIN 40 MG/0.4 ML SQ SCH (13:15)
[2020-07-21 13:55] VITALS: BP 123/69
[2020-07-21 19:22] VITALS: BP 125/71
[2020-07-21] MEDS: ATORVASTATIN 80 MG TABLET PO SCH (21:31)
[2020-07-21] MEDS: TRAZODONE 50MG TABLET PO SCH (21:31)
[2020-07-22 01:21] VITALS: BP 105/61
[2020-07-22 07:11] VITALS: BP 126/72
[2020-07-22] MEDS: CITALOPRAM 20 MG TABLET PO SCH (09:17)
[2020-07-22] MEDS: ASPIRIN 81 MG TABLET CHEW PO SCH (09:17)
[2020-07-22] MEDS: THIAMINE 100MG TABLET PO SCH (09:17)
[2020-07-22] MEDS: MULTIVITAMIN 1 TABLET PO SCH (09:19)
[2020-07-22] MEDS: METOPROLOL TARTRATE 50 MG TAB PO SCH (09:21)
[2020-07-22 09:22] VITALS: BP 120/71
[2020-07-22] MEDS: SODIUM CHLORIDE FLUSH 10ML SYR IVF SCH (09:30)
[2020-07-22] MEDS: ENOXAPARIN 40 MG/0.4 ML SQ SCH (13:49)
[2020-07-22 14:48] VITALS: BP 105/65
[2020-07-22] MEDS ORDERED: METO25TA35 PO (16:41)
[2020-07-22] MEDS ORDERED: TRAM50TA2 PO (16:41)
[2020-07-22] MEDS ORDERED: THIA100T67 PO (16:41)
[2020-07-22] MEDS ORDERED: ERGO500017 PO (16:41)
== END 2020-07-22 18:41 | DRG 4 ==
LOC: ED 14:48 → EDIP 19:34 → 4WST 21:37 → 4NW 06-16 10:47 → ICU 06-20 13:12 → CCU 07-10 14:01 → 4WST 07-13 18:04 → CCU 07-13 18:07 → 4WST 07-13 18:46 → 3N 07-22 10:47
PROVIDERS: ADMIT Family Medicine; ATTEND Internal Medicine
PROC: 5A1955Z Respiratory Ventilation, Greater than 96 Consecutive Hours (ICD-10-PCS; principal; 2020-06-20)
PROC: 0BH18EZ Insertion of Endotracheal Airway into Trachea, Via Natural or Artificial Opening Endoscopic (ICD-10-PCS; 2020-06-20)
PROC: 0T9B30Z Drainage of Bladder with Drainage Device, Percutaneous Approach (ICD-10-PCS; 2020-06-24)
PROC: 02HV33Z Insertion of Infusion Device into Superior Vena Cava, Percutaneous Approach (ICD-10-PCS; 2020-07-01)
PROC: B548ZZA Ultrasonography of Superior Vena Cava, Guidance (ICD-10-PCS; 2020-07-01)
PROC: 30233N1 Transfusion of Nonautologous Red Blood Cells into Peripheral Vein, Percutaneous Approach (ICD-10-PCS; 2020-07-02)
PROC: 0B113F4 Bypass Trachea to Cutaneous with Tracheostomy Device, Percutaneous Approach (ICD-10-PCS; 2020-07-03)
PROC: 0DH67UZ Insertion of Feeding Device into Stomach, Via Natural or Artificial Opening (ICD-10-PCS; 2020-07-03)
DX: A41.89 Other specified sepsis (principal); J96.01 Acute respiratory failure with hypoxia; E43 Unspecified severe protein-calorie malnutrition; G93.41 Metabolic encephalopathy; N17.0 Acute kidney failure with tubular necrosis; U07.1 COVID-19; I26.99 Other pulmonary embolism without acute cor pulmonale; J12.89 Other viral pneumonia; K68.12 Psoas muscle abscess; N17.9 Acute kidney failure, unspecified; D62 Acute posthemorrhagic anemia; E87.0 Hyperosmolality and hypernatremia; E87.1 Hypo-osmolality and hyponatremia; A04.72 Enterocolitis due to Clostridium difficile, not specified as recurrent; Z99.11 Dependence on respirator [ventilator] status; E87.6 Hypokalemia; K21.9 Gastro-esophageal reflux disease without esophagitis; I25.10 Atherosclerotic heart disease of native coronary artery without angina pectoris; E78.5 Hyperlipidemia, unspecified; B96.1 Klebsiella pneumoniae [K. pneumoniae] as the cause of diseases classified elsewhere; E83.39 Other disorders of phosphorus metabolism; E83.51 Hypocalcemia; E87.70 Fluid overload, unspecified; F32.9 Major depressive disorder, single episode, unspecified; G89.29 Other chronic pain; I11.9 Hypertensive heart disease without heart failure; Z60.9 Problem related to social environment, unspecified; Z96.651 Presence of right artificial knee joint; N30.90 Cystitis, unspecified without hematuria; S30.1XXA Contusion of abdominal wall, initial encounter; Z93.0 Tracheostomy status; I25.2 Old myocardial infarction; Z82.49 Family history of ischemic heart disease and other diseases of the circulatory system; Z80.3 Family history of malignant neoplasm of breast; Z87.891 Personal history of nicotine dependence; Z90.710 Acquired absence of both cervix and uterus; Z95.5 Presence of coronary angioplasty implant and graft; Y92.89 Other specified places as the place of occurrence of the external cause
CPT/HCPCS: 36415; 36573; 36600; 49406; 71045; 71260; 71275; 74018; 74176; 74177; 74230; 75989; 76775; 80048; 80053; 80069; 81001; 81003; 82306; 82330; 82728; 82803; 82962; 83605; 83615; 83690; 83735; 83970; 84075; 84100; 84134; 84145; 84450; 84460; 84478; 84484; 84550; 85014; 85018; 85025; 85379; 86140; 86850; 86900; 86923; 87040; 87070; 87075; 87077; 87081; 87086; 87106; 87186; 87205; 87324; 87635; 93005; 93970; 94002; 94003; 94640; 96361; 96374; C1894; G0378; J0456; J0696; J1100; J1644; J1650; J1956; J2185; J2250; J2405; J2550; J2704; J3010; J3370; J3480; J3486; J7613; Q9967; C1729; C1751; C1769; C9113; J0330; J0780; J1120; J1450; J1815; J1940; J2060; J2765; J2920; J2930; J3475; J3490; J7030; J7040; J7050; J7120; P9016

== ENCOUNTER → 2021-07-12 | Outpatient (CLI) | payer MEDICARE ==
[~2021-07-12] MED LIST changes: +BENZONATE; +ERGO500017 PO; +HYDRALAZINE; +THIA100T67 PO; +TRAM50TA2 PO; +TRAMADOL
== END | disposition home or self-care (01) ==
LOC: CFH 14:52
PROVIDERS: ATTEND Internal Medicine
DX: Z12.31 Encounter for screening mammogram for malignant neoplasm of breast (principal); Z12.39 Encounter for other screening for malignant neoplasm of breast
CPT/HCPCS: 76641; 77063; 77067